=== PATIENT | male | born 1955 | race Caucasian/White ===

== ENCOUNTER 2020-10-09 06:05 | Outpatient (REF) | payer OTHER, SELFPAY ==
[2020-10-09 06:27] LABS: MANUAL DIFF FLAG NO
[2020-10-09 06:44] LABS: Basophils Percent Auto 0.5 % (0-2); Eosinophils Absolute Auto 0.1 X10*3/uL (0.0-0.4); Eosinophils Percent Auto 2.4 % (0-4); Hematocrit 48.3 % (42-52); Hemoglobin 16.6 g/dl (14.0-18.0); Imm Gran Abs Auto 0.02 X10*3/uL (0.00-0.03); Imm Gran Pct Auto 0.5 % (0.0-0.4); Lymphocytes Absolute Auto 1.5 X10*3/uL (1.2-4.9); Lymphocytes Percent Auto 35.2 % (20-40); Mean Corpuscular HGB Conc 34.4 g/dl (31.0-36.0); Mean Corpuscular Hemoglobin 31.2 pg (27.0-33.0); Mean Corpuscular Volume 90.8 fL (80-98); Mean Platelet Volume 10.4 fL (9.4-12.4); Monocytes Absolute Auto 0.5 X10*3/uL (0.1-1.2); Monocytes Percent Auto 12.1 % (2-11); Neutrophils Percent Auto 49.3 % (45-73); Platelet Count 193 X10*3/uL (160-400); Red Blood Count 5.32 X10*6/uL (4.60-5.80); Red Cell Distribution Width 12.9 % (11.0-16.0); White Blood Count 4.1 X10*3/uL (4.8-10.8)
[2020-10-09 07:12] LABS: Alanine Aminotransferase 36 U/L (0-40); Albumin Level 4.5 g/dL (3.5-5.0); Alkaline Phosphatase 70 U/L (39-117); Anion Gap 14 (12-20); Aspartate Amino Transferase 26 U/L (5-37); Bilirubin Total 0.8 mg/dL (0.0-1.0); Blood Urea Nitrogen 13 mg/dL (9-16); Calcium 9.7 mg/dL (8.4-10.2); Carbon Dioxide 25 mmol/L (22-29); Chloride 108 mmol/L (96-108); Cholesterol 194 mg/dL; Estimated Glomerular Filt Rate > 60; Glucose Random 95 mg/dL (60-115); HDL Cholesterol 49 mg/dL; LDL Cholesterol Calculated 114 mg/dl; Potassium 5.1 mmol/L (3.3-5.1); Sodium 142 mmol/L (135-145); Total Protein 7.3 g/dL (6.5-8.0); Triglycerides 157 mg/dL
[2020-10-09 07:35] LABS: Prostate Specific Antigen 0.39 ng/mL (<0.05-4.0); Thyroid Stimulating Hormone 0.97 uIU/mL (0.32-4.0)
== END 2020-10-09 06:06 | disposition home or self-care (01) ==
LOC: HO.LAB 06:05
PROVIDERS: Visit Provider Internal Medicine
DX: Z12.5 Encounter for screening for malignant neoplasm of prostate (principal); E78.00 Pure hypercholesterolemia, unspecified
CPT/HCPCS: 36415; 80053; 80061; 84153; 84443; 85025

== ENCOUNTER 2021-01-27 09:16 | Outpatient (REF) | payer MEDICARE, SELFPAY ==
--- NOTE | ~2021-01-27 | US_ITS ---
EXAMINATION: US RETROPERITONEAL LIMITED (AORTA) CLINICAL INFORMATION: History of smoking. COMPARISON: Comparison is made to a CT scan dated 01/11/2015 which demonstrated mild ectasia of the infrarenal aorta. TECHNIQUE: Rico-scale, color Doppler and spectral Doppler evaluation of the abdominal aorta. FINDINGS: There is scattered minimal atherosclerotic disease without evidence of abdominal aortic aneurysm. 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 The measurements of the aorta in maximum AP and transverse dimensions respectively are as follows: Proximal: 3.1 x 2 point cm. Mid: 2.0 x 2.2 cm. Distal: 2.0 x 2.3 cm. PSV: 88 cm/s. The measurements of the common iliac arteries in maximum AP and TRV dimensions are as follows: Right Common Iliac Artery: 1.5 x 1.3 cm. Left Common Iliac Artery: 1.5 x 1.5 cm. US/US abdominal aortic aneurysm IMPRESSION: 1. There is scattered minimal atherosclerotic disease without evidence of abdominal aortic aneurysm. 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
== END 2021-01-27 09:17 | disposition home or self-care (01) ==
LOC: HO.US 09:16
PROVIDERS: PCP Internal Medicine; Visit Provider Internal Medicine
DX: Z13.6 Encounter for screening for cardiovascular disorders (principal); Z87.891 Personal history of nicotine dependence
CPT/HCPCS: 76706

== ENCOUNTER 2021-06-16 06:16 | Outpatient (REF) | payer MEDICARE, SELFPAY ==
[2021-06-16 06:30] LABS: MANUAL DIFF FLAG NO
[2021-06-16 07:24] LABS: Basophils Percent Auto 0.3 % (0-2); Eosinophils Absolute Auto 0.1 X10*3/uL (0.0-0.4); Eosinophils Percent Auto 2.3 % (0-4); Hematocrit 46.4 % (42.0-52.0); Hemoglobin 15.5 g/dl (14.0-18.0); Imm Gran Abs Auto 0.01 X10*3/uL (0.00-0.03); Imm Gran Pct Auto 0.3 % (0.0-0.4); Lymphocytes Absolute Auto 1.5 X10*3/uL (1.2-4.9); Lymphocytes Percent Auto 37.7 % (20-40); Mean Corpuscular HGB Conc 33.4 g/dl (31.0-36.0); Mean Corpuscular Hemoglobin 30.3 pg (27.0-33.0); Mean Corpuscular Volume 90.8 fL (80.0-98.0); Mean Platelet Volume 11.5 fL (9.4-12.4); Monocytes Absolute Auto 0.5 X10*3/uL (0.1-1.2); Monocytes Percent Auto 12.7 % (2-11); Neutrophils Absolute Auto 1.8 x10*3/uL (2.0-8.3); Neutrophils Percent Auto 46.7 % (45-73); Platelet Count 182 X10*3/uL (160-400); Red Blood Count 5.11 X10*6/uL (4.60-5.80); Red Cell Distribution Width 12.9 % (11.0-16.0); White Blood Count 3.9 X10*3/uL (4.8-10.8)
[2021-06-16 07:53] LABS: Alanine Aminotransferase 36 U/L (0-40); Albumin Level 4.4 g/dL (3.5-5.0); Alkaline Phosphatase 74 U/L (39-117); Anion Gap 10 (12-20); Aspartate Amino Transferase 26 U/L (5-37); Bilirubin Total 0.9 mg/dL (0.0-1.0); Blood Urea Nitrogen 13 mg/dL (9-16); Calcium 10.1 mg/dL (8.4-10.2); Carbon Dioxide 28 mmol/L (22-29); Chloride 109 mmol/L (96-108); Cholesterol 160 mg/dL; Estimated Glomerular Filt Rate > 60; Glucose Random 93 mg/dL (60-115); HDL Cholesterol 40 mg/dL; LDL Cholesterol Calculated 90 mg/dl; Potassium 5.3 mmol/L (3.3-5.1); Sodium 142 mmol/L (135-145); Total Protein 7.1 g/dL (6.5-8.0); Triglycerides 154 mg/dL
[2021-06-16 08:02] LABS: Appearance Urine CLEAR; Color Urine YELLOW; Glucose Urine UA NEG (NEG); Leukocyte Esterase Urine NEG (NEG); Nitrite Urine NEG (NEG); Specific Gravity - Urine >= 1.030 (1.005-1.025); Urine Blood NEG (NEG); Urine Ketones NEG (NEG); Urine Protein NEG (NEG-TRACE)
[2021-06-16 08:09] LABS: ~HepC Num1 0.08 S/CO (0.00-0.79); ~Hepatitis C Antibody Nonreactive (Nonreactive)
[2021-06-16 08:14] LABS: Thyroid Stimulating Hormone 1.75 uIU/mL (0.32-4.0)
== END 2021-06-16 06:17 | disposition home or self-care (01) ==
LOC: HO.LAB 06:16
PROVIDERS: PCP Internal Medicine; Visit Provider Internal Medicine
DX: Z11.59 Encounter for screening for other viral diseases (principal); E78.00 Pure hypercholesterolemia, unspecified; R35.1 Nocturia
CPT/HCPCS: 36415; 80053; 80061; 81003; 84443; 85025; 86803

== ENCOUNTER 2021-08-06 10:21 | Outpatient (REF) | payer MEDICARE, SELFPAY ==
--- NOTE | ~2021-08-06 | US_ITS ---
EXAMINATION: US THYROID CLINICAL INFORMATION: Nontoxic multinodular goiter COMPARISON: None TECHNIQUE: Linear transducer grayscale and color Doppler examination with attention to the region of the thyroid. FINDINGS: SIZE: Measurements of the thyroid lobes and nodules are given in sagittal, anteroposterior and transverse dimensions respectively. Right Thyroid Lobe: 4.3 x 2.3 x 2.1 cm, volume 10.9 mL. Parenchyma: The gland echotexture is homogeneous. Thyroid vascularity is normal. Left Thyroid Lobe: 5.2 x 1.5 x 2.0 cm, volume 8.2 mL. Parenchyma: The gland echotexture is homogeneous. Thyroid vascularity is normal. Isthmus: 0.6 cm in maximum AP dimension. Estimated total number of nodules greater than or equal to 1 cm: 1. Fringe Weaver nodules are described as follows: 1. Location: Right inferior. Size: 1.0 x 0.7 x 0.8 cm, volume 0.29 mL. Nodule characteristics: Composition: Solid (2). Echogenicity: Very hypoechoic (3). Shape: Not taller than wide (0). Margins: Smooth (0). Echogenic Foci: Punctate echogenic foci (3). ACR TI-RADS total points: 8 ACR TI-RADS category: 5 2. Location: Left inferior medial. Size: 0.6 x 0.3 x 0.6 cm, volume 0.05 mL. Nodule characteristics: Composition: Mixed cystic and solid (1). Echogenicity: Cannot be determined (1). Shape: Not taller than wide (0). Margins: Smooth (0). Echogenic Foci: None (0). ACR TI-RADS total points: 2 ACR TI-RADS category: 2 3. Location: Left inferior medial. Size: 0.4 x 0.2 x 0.3 cm, volume 0.01 mL. Nodule characteristics: Composition: Spongiform (0). Echogenicity: Anechoic (0). Shape: Not taller than wide (0). Margins: Smooth (0). Echogenic Foci: None (0). ACR TI-RADS total points: 0 ACR TI-RADS category: 1 NODES: There are 2 level 4 right cervical lymph nodes that measure 1.1 x 0.7 x 0.8 cm and 1.1 x 0.5 x 0.8 cm. There are 3 left level 3 lymph nodes that measure 1.9 x 0.4 x 0.9 cm and 1 x 0.4 x 0.7 cm and 1.3 x 0.5 x 0.8 cm. Lymph nodes are upper normal in size. Some lymph nodes demonstrate abnormal ultrasound morphology and cortical flow. US/US thyroid IMPRESSION: Bilateral thyroid nodules. Suspicious-appearing nodule in the inferior right lobe. Fine needle aspiration of the nodule in the right lobe recommended. Upper normal-size bilateral lymph nodes adjacent to the thyroid gland with abnormal ultrasound morphology and flow. Fine needle aspiration of a cervical lymph node should be considered as well. ACR TI-RADS RECOMMENDATION REFERENCE: Ultrasound-guided fine-needle aspiration, followup ultrasound, no further follow up. * TR1 (0 point) and TR 2 (2 points): No FNA or follow up * TR3 (3 points): FNA if more than or equal to 2.5 cm in maximum dimension, followup ultrasound in 1, 3 and 5 years if 1.5 to 2.4 cm in maximum dimension. * TR4 (4-6 points): FNA if more than or equal to 1.5 cm in maximum dimension, followup ultrasound in 1, 2, 3 and 5 years if 1 to 1.4 cm in maximum dimension. * TR5 (more than or equal to 7 points): FNA if more than or equal to 1 cm in maximum dimension, followup ultrasound every year for 5 years if 0.5 to 0.9 cm in maximum dimension. * TR3, TR4 or TR5 nodules that are below the size threshold for follow up receive no follow up. Findings will be communicated by the [place] work flow baby attendant.
== END 2021-08-06 10:22 | disposition home or self-care (01) ==
LOC: HO.HMGCX 10:21
PROVIDERS: Visit Provider Internal Medicine
DX: E04.2 Nontoxic multinodular goiter (principal)
CPT/HCPCS: 76536

== ENCOUNTER 2021-12-30 06:22 | Outpatient (REF) | payer MEDICARE, SELFPAY ==
[2021-12-30 06:29] LABS: MANUAL DIFF FLAG NO
[2021-12-30 07:57] LABS: Basophils Percent Auto 0.4 % (0-2); Eosinophils Absolute Auto 0.2 X10*3/uL (0.0-0.4); Hematocrit 48.1 % (42.0-52.0); Hemoglobin 16.5 g/dl (14.0-18.0); Imm Gran Abs Auto 0.02 X10*3/uL (0.00-0.03); Imm Gran Pct Auto 0.4 % (0.0-0.4); Lymphocytes Absolute Auto 1.8 X10*3/uL (1.2-4.9); Lymphocytes Percent Auto 35.3 % (20-40); Mean Corpuscular HGB Conc 34.3 g/dl (31.0-36.0); Mean Corpuscular Hemoglobin 31.3 pg (27.0-33.0); Mean Corpuscular Volume 91.1 fL (80.0-98.0); Mean Platelet Volume 10.8 fL (9.4-12.4); Monocytes Absolute Auto 0.6 X10*3/uL (0.1-1.2); Monocytes Percent Auto 11.4 % (2-11); Neutrophils Absolute Auto 2.5 x10*3/uL (2.0-8.3); Neutrophils Percent Auto 49.5 % (45-73); Platelet Count 219 X10*3/uL (160-400); Red Blood Count 5.28 X10*6/uL (4.60-5.80); Red Cell Distribution Width 12.7 % (11.0-16.0)
[2021-12-30 08:17] LABS: Alanine Aminotransferase 34 U/L (0-40); Albumin Level 4.7 g/dL (3.5-5.0); Alkaline Phosphatase 75 U/L (39-117); Anion Gap 15 (12-20); Aspartate Amino Transferase 25 U/L (5-37); Bilirubin Total 0.7 mg/dL (0.0-1.0); Blood Urea Nitrogen 18 mg/dL (9-16); Calcium 9.6 mg/dL (8.4-10.2); Carbon Dioxide 26 mmol/L (22-29); Chloride 106 mmol/L (96-108); Cholesterol 180 mg/dL; Estimated Glomerular Filt Rate > 60; Glucose Random 83 mg/dL (60-115); HDL Cholesterol 50 mg/dL; LDL Cholesterol Calculated 103 mg/dl; Sodium 142 mmol/L (135-145); Total Protein 7.4 g/dL (6.5-8.0); Triglycerides 136 mg/dL
[2021-12-30 08:40] LABS: Thyroid Stimulating Hormone 1.43 uIU/mL (0.32-4.0)
[2021-12-31 21:36] LABS: Thyroid Peroxidase Antibodies 1 IU/mL (<9)
== END 2021-12-30 06:23 | disposition home or self-care (01) ==
LOC: HO.LAB 06:22
PROVIDERS: PCP Internal Medicine; Visit Provider Internal Medicine
DX: D72.819 Decreased white blood cell count, unspecified (principal); E78.00 Pure hypercholesterolemia, unspecified; E04.2 Nontoxic multinodular goiter
CPT/HCPCS: 36415; 80053; 80061; 84443; 85025; 86376

== ENCOUNTER 2023-03-09 06:07 | Outpatient (REF) | payer MEDICARE, SELFPAY ==
[2023-03-09 06:38] LABS: MANUAL DIFF FLAG NO
[2023-03-09 07:44] LABS: Basophils Percent Auto 0.4 % (0-2); Eosinophils Absolute Auto 0.1 X10*3/uL (0.0-0.4); Eosinophils Percent Auto 2.2 % (0-4); Hematocrit 48.7 % (42.0-52.0); Hemoglobin 16.8 g/dl (14.0-18.0); Imm Gran Abs Auto 0.02 X10*3/uL (0.00-0.03); Imm Gran Pct Auto 0.4 % (0.0-0.4); Lymphocytes Absolute Auto 1.6 X10*3/uL (1.2-4.9); Lymphocytes Percent Auto 35.2 % (20-40); Mean Corpuscular HGB Conc 34.5 g/dl (31.0-36.0); Mean Corpuscular Hemoglobin 31.2 pg (27.0-33.0); Mean Corpuscular Volume 90.4 fL (80.0-98.0); Mean Platelet Volume 11.1 fL (9.4-12.4); Monocytes Absolute Auto 0.5 X10*3/uL (0.1-1.2); Monocytes Percent Auto 11.7 % (2-11); Neutrophils Absolute Auto 2.3 x10*3/uL (2.0-8.3); Neutrophils Percent Auto 50.1 % (45-73); Platelet Count 219 X10*3/uL (160-400); Red Blood Count 5.39 X10*6/uL (4.60-5.80); Red Cell Distribution Width 12.8 % (11.0-16.0); White Blood Count 4.5 X10*3/uL (4.8-10.8)
[2023-03-09 08:03] LABS: Cholesterol 183 mg/dL (<200); HDL Cholesterol 49 mg/dL (>40); LDL Cholesterol Calculated 107 mg/dL (<100); Triglycerides 136 mg/dL (<150)
[2023-03-09 08:14] LABS: Prostate Specific Antigen Scr 0.57 ng/mL (<0.05-4.0)
[2023-03-09 08:22] LABS: Thyroid Stimulating Hormone 1.39 uIU/mL (0.32-4.0)
== END 2023-03-09 06:08 | disposition home or self-care (01) ==
LOC: HO.LAB 06:07
PROVIDERS: PCP Internal Medicine; Visit Provider Internal Medicine
DX: Z12.5 Encounter for screening for malignant neoplasm of prostate (principal); E78.00 Pure hypercholesterolemia, unspecified; E04.2 Nontoxic multinodular goiter
CPT/HCPCS: 36415; 80061; 82945; 84153; 84443; 85025

== ENCOUNTER 2023-03-31 06:04 | Outpatient (REF) | payer MEDICARE, SELFPAY ==
[2023-03-31 07:22] LABS: Alanine Aminotransferase 42 U/L (0-40); Albumin Level 4.5 g/dL (3.5-5.0); Alkaline Phosphatase 73 U/L (39-117); Anion Gap 12 (12-20); Aspartate Amino Transferase 30 U/L (5-37); Bilirubin Total 0.7 mg/dL (0.0-1.0); Blood Urea Nitrogen 12 mg/dL (9-16); Calcium 9.6 mg/dL (8.4-10.2); Carbon Dioxide 23 mmol/L (22-29); Chloride 110 mmol/L (96-108); Estimated Glomerular Filt Rate > 60; Glucose Random 88 mg/dL (60-115); Potassium 4.1 mmol/L (3.3-5.1); Sodium 141 mmol/L (135-145); Total Protein 7.4 g/dL (6.5-8.0)
== END 2023-03-31 06:05 | disposition home or self-care (01) ==
LOC: HO.LAB 06:04
PROVIDERS: PCP Internal Medicine; Visit Provider Internal Medicine
DX: E78.00 Pure hypercholesterolemia, unspecified (principal)
CPT/HCPCS: 36415; 80053

== ENCOUNTER 2023-08-15 08:52 | Outpatient (REF) | payer MEDICARE, SELFPAY ==
--- NOTE | ~2023-08-15 | US_ITS ---
EXAMINATION: US THYROID CLINICAL INFORMATION: Multiple thyroid nodules. COMPARISON: Ultrasound soft tissue head/neck thyroid dated 08/06/2021. TECHNIQUE: Linear transducer grayscale and color Doppler examination with attention to the region of the thyroid. FINDINGS: SIZE: Measurements of the thyroid lobes and nodules are given in sagittal, anteroposterior and transverse dimensions respectively. Right Thyroid Lobe: 4.5 x 2.1 x 2.4 cm, volume 11.8 mL. Previously 4.3 x 2.3 x 2.1 cm, volume 10.9 mL. Parenchyma: The gland echotexture is homogeneous. Thyroid vascularity is normal. Left Thyroid Lobe: 4.6 x 1.9 x 1.8 cm, volume 8.2 mL. Previously 5.2 x 1.5 x 2.0 cm, volume 8.2 mL. Parenchyma: The gland echotexture is homogeneous. Thyroid vascularity is normal. Isthmus: 0.8 cm in maximum AP dimension. Previously 0.6 cm. Estimated total number of nodules greater than or equal to 1 cm: 1. Electrical Transmission Engineer nodules are described as follows: 1. Location: Right mid/inferior. Size: 1.1 x 0.6 x 0.6 cm, volume 0.21 mL. Previously: 1.0 x 0.7 x 0.8 cm, volume 0.29 mL. Nodule characteristics: Composition: Solid (2). Echogenicity: Very hypoechoic (3). Shape: Not taller than wide (0). Margins: Smooth (0). Echogenic Foci: Punctate echogenic foci (3). ACR TI-RADS total points: 8 Previous: 8 ACR TI-RADS category: 5 Previous: 5 Significant change in size (>/= 20% in 2 dimensions and minimal increase of 2 mm or 50% or greater increase in volume): No Change in features: No Change in ACR TI-RADS risk category: No 2. Location: Left inferior. Size: 0.7 x 0.4 x 0.6 cm, volume 0.09 mL. Previously: 0.6 x 0.3 x 0.6 cm, volume 0.05 mL. Nodule characteristics: Composition: Mixed cystic and solid (1). Echogenicity: Undetermined Shape: Not taller than wide (0). Margins: Smooth (0). Echogenic Foci: None (0). ACR TI-RADS total points: 2 Previous: 2 ACR TI-RADS category: 2 Previous: 2 Significant change in size (>/= 20% in 2 dimensions and minimal increase of 2 mm or 50% or greater increase in volume): Yes Change in features: No Change in ACR TI-RADS risk category: No 3. Location: Left inferior. Size: 0.3 x 0.2 x 0.3 cm, volume 0.01 mL. Previously: 0.4 x 0.2 x 0.3 cm, volume 0.01 mL. Nodule characteristics: Composition: Spongiform (0). Echogenicity: Anechoic (0). Shape: Not taller than wide (0). Margins: Smooth (0). Echogenic Foci: None (0). ACR TI-RADS total points: 0 Previous: 0 ACR TI-RADS category: 1 Previous: 1 Significant change in size (>/= 20% in 2 dimensions and minimal increase of 2 mm or 50% or greater increase in volume): No Change in features: No Change in ACR TI-RADS risk category: No NODES: 0.8 x 0.5 x 0.8 cm and 0.9 x 0.6 x 0.6 cm right level 4 lymph nodes. A 1.1 x 0.5 x 0.7 cm, 0.9 x 0.4 x 0.4 cm, and 1.7 x 0.5 x 0.5 cm left level 3 lymph nodes. Bilateral cervical nodes have not significantly increased in size and remain borderline enlarged. As previously noted, some nodes appear atypical. US/US thyroid IMPRESSION: 1. A 1.0 cm right lower pole TR 5 thyroid nodule again meets criteria for biopsy. Fine-needle aspiration recommended if not already performed. 2. Bilateral cervical nodes have not significantly increased in size and remain borderline enlarged. As previously noted, some nodes appear atypical. Correlation with clinical exam recommended to determine further management including possible additional imaging, treatment or biopsy. This study was presented today August 22, 2023 for interpretation. PSA staff will provide results to referring provider at this time. ACR TI-RADS RECOMMENDATION REFERENCE: Ultrasound-guided fine-needle aspiration, follow up ultrasound, no further followup. * TR1 (0 point) and TR2 (2 points): No FNA or followup * TR3 (3 points): FNA if more than or equal to 2.5 cm in maximum dimension, follow up ultrasound in 1, 3 and 5 years if 1.5 to 2.4 cm in maximum dimension. * TR4 (4-6 points): FNA if more than or equal to 1.5 cm in maximum dimension, follow up ultrasound in 1, 2, 3 and 5 years if 1 to 1.4 cm in maximum dimension. * TR5 (more than or equal to 7 points): FNA if more than or equal to 1 cm in maximum dimension, follow up ultrasound every year for 5 years if 0.5 to 0.9 cm in maximum dimension. * TR3, TR4 or TR5 nodules that are below the size threshold for follow up receive no followup.
== END 2023-08-15 08:53 | disposition home or self-care (01) ==
LOC: HO.US 08:52
PROVIDERS: PCP Internal Medicine; Visit Provider Internal Medicine
DX: E04.2 Nontoxic multinodular goiter (principal)
CPT/HCPCS: 76536

== ENCOUNTER 2023-09-11 13:05 | Outpatient (REF) | payer MEDICARE, SELFPAY ==
[2023-09-11 14:53] LABS: C Reactive Protein 0.11 mg/dL (< or = 0.50)
[2023-09-12 13:58] LABS: Lyme Abs Screen <0.90 index
[2023-09-20 15:44] LABS: A. Phagocytophilum Ab IgG <1:64 (<1:64); A. Phagocytophilum Ab IgM <1:20 (<1:20); E. Chaffeensis Ab IgG <1:64 (<1:64); E. Chaffeensis Ab IgM <1:20 (<1:20)
== END 2023-09-11 13:06 | disposition home or self-care (01) ==
LOC: HO.LAB 13:05
PROVIDERS: PCP Internal Medicine; Visit Provider Internal Medicine
DX: M25.50 Pain in unspecified joint (principal)
CPT/HCPCS: 36415; 86140; 86617; 86618; 86666

== ENCOUNTER 2023-12-18 06:26 | Day surgery (SDC) | payer MEDICARE, SELFPAY ==
[2023-12-14 14:31] VITALS: BMI 31.8
--- NOTE | 2023-12-15 12:34 | P.CONAN_ITS ---
Documented by User: Oanh Vann NP 12/15/23 12:34 HPI - Anesthesia Eval Consult details Narrative: 68yo M for Colonoscopy [facility] Past Medical History Medical History (Updated 12/14/23 @ 14:32 by Kami Wang RN) MRSA (methicillin resistant Staphylococcus aureus) Hyperlipidemia Surgical History Surgical History (Updated 12/14/23 @ 14:29 by Kami Wang RN) History of back surgery Hx of tonsillectomy Hx of right inguinal hernia repair History of hydrocelectomy Hx of foot surgery H/O colonoscopy Social History Social History (Updated 12/14/23 @ 14:29 by Kami Wang RN) Household Members: Spouse Are you a primary progressive care unit registered nurse to a significant other at home: No Do you presently have visiting nurse or other home services: No Patient Tobacco Use Status: Former Tobacco user Tobacco use type: Cigarette Use of substances other than those prescribed or required for medical reasons: Yes Have you been hit, kicked, punched, or otherwise hurt by someone within the past year? If so, by whom?: No Are you DNR?: No Advance Directives: No Advance Directives Information Provided: Yes Recently lost weight without trying: No Meds Allergies Allergy/AdvReac Type Severity Reaction Status Date / Time ibuprofen [IBUPROFEN] Allergy Unknown HIVES AND Verified 12/18/23 07:02 RASH Home Medications ?Medication ?Instructions ?Recorded ?Confirmed ?Last Taken ?Type aspirin 81 mg tablet,delayed 81 mg PO DAILY 12/14/23 12/14/23 12/14/23 History release atorvastatin 10 mg tablet 10 mg PO DAILY 12/14/23 12/14/23 Unknown History multivitamin 1 tab PO DAILY 12/14/23 12/14/23 Unknown History edtfd-0a-alp-epa-fish oil 120 1 cap PO DAILY 12/14/23 12/14/23 12/14/23 History mg-180 mg-60 mg-1,200 mg capsule, DR (Fish Oil) Exam Height,Weight and Vital Signs: Height 5 ft 8 in Weight 94.801 kg Assessment and Plan Assessment Anesthesia Assessment: Chart Reviewed Documented by User: Mat Agrawal MD 12/18/23 07:32 [facility] Past Medical History Medical History (Updated 12/14/23 @ 14:32 by Kami Wang RN) MRSA (methicillin resistant Staphylococcus aureus) Hyperlipidemia Family History Family history of problems with anesthesia: No Surgical History Surgical History (Updated 12/14/23 @ 14:29 by Kami Wang RN) History of back surgery Hx of tonsillectomy Hx of right inguinal hernia repair History of hydrocelectomy Hx of foot surgery H/O colonoscopy History of Problems with Anesthesia: No Social History Social History (Updated 12/14/23 @ 14:29 by Kami Wang RN) Household Members: Spouse Are you a primary progressive care unit registered nurse to a significant other at home: No Do you presently have visiting nurse or other home services: No Patient Tobacco Use Status: Former Tobacco user Tobacco use type: Cigarette Use of substances other than those prescribed or required for medical reasons: Yes Have you been hit, kicked, punched, or otherwise hurt by someone within the past year? If so, by whom?: No Are you DNR?: No Advance Directives: No Advance Directives Information Provided: Yes Recently lost weight without trying: No Meds Allergies Allergy/AdvReac Type Severity Reaction Status Date / Time ibuprofen [IBUPROFEN] Allergy Unknown HIVES AND Verified 12/18/23 07:02 RASH Home Medications ?Medication ?Instructions ?Recorded ?Confirmed ?Last Taken ?Type aspirin 81 mg tablet,delayed 81 mg PO DAILY 12/14/23 12/14/23 12/14/23 History release atorvastatin 10 mg tablet 10 mg PO DAILY 12/14/23 12/14/23 Unknown History multivitamin 1 tab PO DAILY 12/14/23 12/14/23 Unknown History xbogm-7f-csa-epa-fish oil 120 1 cap PO DAILY 12/14/23 12/14/23 12/14/23 History mg-180 mg-60 mg-1,200 mg capsule, DR (Fish Oil) Exam Airway Mallampati Class: I TM Dist: <=3cm Neck ROM: Full Loose/Missing/Broken Teeth: No Heart: ok Lungs: ok Assessment and Plan Assessment Anesthesia Assessment: Anesthesia Plan Discussed Final Anesthetic Review Family History of Problems with Anesthesia: No History of Problems with Anesthesia: No NPO: Yes ASA Class: II Final Preanesthetic Review: No Changes in Pt Med Stat, Meds/Allgs Chart Reviewed, Consent Obtained/Reviewed and Anes Risks/Benef Reviewed Patient Risk: Intermediate Procedure Risk: Low Anesthetic Plan Anesthetic Plan: MAC: and Agree w/ Assess. and Plan Disposition: Standard PACU
[2023-12-18 07:06] VITALS: BMI 31.0
[2023-12-18 07:07] VITALS: BMI 31.0
[2023-12-18 07:15] VITALS: BP 137/86; PULSE 61; RESP 16; TEMP 36.1; O2SAT 96
[2023-12-18] MEDS: Lactated Ringers 1,000 ML 100 ML IVCONT (07:28)
[2023-12-18 08:24] VITALS: BP 116/72; PULSE 59; RESP 18; TEMP 36.4; O2SAT 94
--- NOTE | 2023-12-18 08:26 | PM.OP ---
Brief Operative Note Date of Service: 12/18/23 Pre-op diagnosis: Screening Post-op diagnosis: other (Colon polyp) Procedure: Colonoscopy to the cecum and TI with bx/removal of polyp Surgeon: Jordan Monterroso MD Anesthesia: MAC Was an Salesperson Hosiery used for this Procedure?: No Estimated blood loss (mL): 2.0 Pathology: other (A. Cecal polyp) Condition: stable Disposition: PACU
[2023-12-18 08:39] VITALS: BP 127/82; PULSE 68; RESP 18; O2SAT 96
[2023-12-18 08:51] VITALS: TEMP 36.6
--- NOTE | 2023-12-18 08:51 | OP_ITS ---
DATE OF SERVICE: 12/18/2023 SURGEON: Jordan Monterroso MD INDICATIONS: The patient presents for evaluation of personal history of tubular adenomas of the colon and colorectal cancer screening. Full consent has been obtained from him for this, including risks of bleeding and perforation. PREOPERATIVE DIAGNOSIS: Colorectal cancer screening and personal history of tubular adenoma of the colon. POSTOPERATIVE DIAGNOSIS: PROCEDURE PERFORMED: Colonoscopy to the cecum and terminal ileum with biopsy and removal of polyp. ESTIMATED BLOOD LOSS: COMPLICATIONS: ANESTHESIA: Monitored anesthesia care. ASSISTANTS: SPECIMENS: POSTOPERATIVE DIAGNOSES: Colorectal cancer screening and personal history of tubular adenoma of the colon, small colon polyp, diverticulosis, and internal hemorrhoids. DESCRIPTION OF PROCEDURE: The patient was placed in the left lateral decubitus position. The digital rectal exam revealed no abnormalities. The Olympus video pediatric colonoscope was entered into the rectum and advanced easily to the cecum. Once in the cecum, I did identify normal-appearing cecal pouch other than a 3 mm polyp adjacent to the appendiceal orifice that was biopsied and completely removed with a cold biopsy forceps. It appeared to be grossly hyperplastic. The terminal ileum was cannulated and appeared normal. The scope was withdrawn back in the colon. The remainder of the cecum appeared normal. The scope was slowly withdrawn assessing all mucosal surfaces carefully. Preparation was excellent. I did not visualize any other polyps, colitis, nor angiodysplasia. There was a mild amount of sigmoid diverticulosis. In the rectum, scope was retroflexed visualizing internal hemorrhoids, but no other pathology. The rectal mucosa appeared normal. The scope was straightened and withdrawn from the patient. He tolerated the procedure well and was returned to the recovery area in stable condition. IMPRESSION: 1. Small colon polyp. 2. Diverticulosis. 3. Internal hemorrhoids. PLAN: The results of the biopsy will be checked. I would recommend a repeat colonoscopy in 5 years for further screening and surveillance. He will otherwise see me on a p.r.n. basis. MD GISELA Bassett/ANDRE / [phone]
== END 2023-12-18 09:01 | disposition home or self-care (01) ==
PROVIDERS: PCP Internal Medicine; Visit Provider Internal Medicine
PROC: 0DJD8ZZ Inspection of Lower Intestinal Tract, Via Natural or Artificial Opening Endoscopic (ICD-10-PCS; CPT 45378; principal; 2023-12-18 07:30)
DX: Z12.11 Encounter for screening for malignant neoplasm of colon (principal); D12.0 Benign neoplasm of cecum; K57.30 Diverticulosis of large intestine without perforation or abscess without bleeding; K64.8 Other hemorrhoids; Z86.010 Personal history of colon polyps; E78.5 Hyperlipidemia, unspecified; Z86.14 Personal history of Methicillin resistant Staphylococcus aureus infection; Z87.891 Personal history of nicotine dependence
CPT/HCPCS: 45380; 88305; J2704

== ENCOUNTER 2024-08-15 06:08 | Outpatient (REF) | payer MEDICARE, SELFPAY ==
--- OUTSIDE RECORDS SUMMARY | 2024-08-15 06:11 | XMS_ITS ---
Author Organization [facility] Raffaele ashleigh [place]den Address [address] [place] [address] Care Team Providers Care Repair Operator Name Role Phone Sanjeev Stephenson MD Primary Care Provider Unavaila ble Black, Sudha Unavailable [phone] Allergies Allergen (clinical drug ingredient) Drug/Non Drug Allergy documented on EMR Reaction Allergy Type Onset Date Status ibuprofen Advil hives Drug Allergy Active Aleve hives Drug Allergy Active ibuprofen Ibuprofen hives Drug Allergy Active Results Component Value Reference Range Notes X ray : Foot, left 3V Reviewed date:07/10/2024 12:26:48 PM Interpretation:See Examination above Performing Lab: Notes/Report: See Examination above REASON FOR VISIT Foot pain, Ingrown Nail Medications Medication SIG (Take, Route, Frequency, Duration) Notes Start Date End Date Status Keflex 500 MG 1 capsule Orally huma ry 12 hrs for 7 days 03/25/2020 Not-Taking Atorvastatin Calcium 10 MG Orally Active Fish Oil Active Percocet 5-325 MG 1 tablet as needed Orally every 4-6 hrs for as needed 08/25/2016 Not-Taking Keflex 500 MG 1 capsule Orally huma ry 12 hrs for 10 day(s) Not-Taking Multivitamin Active Social History Tobacco Use: Social History Observation Description Date Details (start date - stop date) Never Smoker NA - NA Tobacco use other than smoking: Question Answer Notes Are you an other tobacco user? No Tobacco Control (Standard) Question Answer Notes Tobacco use: Nonsmoker Additional Findings: Tobacco non-user Current no nsmoker AUDIT-C (Standard) Question Answer Notes Did you have a drink containing alcohol in the p ast year? No Points 0 Interpretation Negative Problems Problem Type SNOMED Code ICD Code Onset Dates Problem Status W/U Status Risk Notes Problem Osteoarthritis of midtarsal joint of left foot (3007990501638001 ) Osteoarthritis of midtarsal joint of left foot (M19.072) Active confirmed Vital Signs Height 5ft 9in in 07/10/2024 Weight 204 lbs 07/10/2024 BMI 30.12 kg/m2 07/10/2024 Blood pressure systolic 125 mm Hg 07/11/19 25 Blood pressure diastolic 73 mm Hg 025 Procedures Procedure Date Ordered Date Performed Result Body Sit e 75324-Jjwxoaky Plate 07/10/2024 N/A Encounters Encounter Location Date Provider Diagnosis [facility] [address] 07/10/2024 Sudha Black Pain in left foot M79.672 ; Osteoarthritis of midtarsal joint of left foot M19.072 ; Pain in left ankle and joints of left foot M25.572 ; Bursitis of left foot M77.52 and Ingrown nail L60.0 Assessments Encounter Date Diagnosis (ICD Code) Assessment Notes Treatment Notes Treatment Clinical Notes Section Notes 07/10/2024 Pain in left foot (ICD-10 - M79.672) 07/10/2024 Osteoarthritis of midtarsal joint of left foot (ICD-10 - M19.072) 07/10/2024 Pain in left ankle and joints of left foot (ICD-10 - M25.572) 07/10/2024 Bursitis of left foot (ICD-10 - M77.52) 07/10/2024 Ingrown nail (ICD-10 - L60.0) Plan Of Treatment Pending Test Test Name Order Date 23340-Uvmbaeoa Plate 07/10/2024 Next Appt Details Follow Up: 2 Weeks,prn, Reas on: Procedure Notes * Category Sub-Category Detail Notes Nail Avulsion Procedure A fine sterile e levator was placed between the eponychium, nail fold, and nail plate to separate the structures. A sterile nail splitter, and/or sterile 316 blade, was then used to longitudinally section the nail along its entire length through the eponychium to the area under the nail fold. The offending portion of nail was from the nail bed with a rolling action and then removed with a hemostat. No underlying bone was identified. There was minimal bleeding as hemostasis was achieved through the temporary use of either a digital tourniquet or the aforementioned local with epinephrine. A bacitracin sterile dressing was applied. Local wound aftercare instructions were discussed and dispensed. The patient was informed of both conservative and future surgical procedures to prevent recurrence. Tylenol or Motrin was recommended for pain or discomfort - 80225, Pt DEFERS matricectomy Anesthesia , 3cc of 1 percent L idocaine Plain local anesthesic utilizing aseptic technique Location , Medial nail border , TA Progress Notes * Lee FREGOSO ADOB: [birth year] (68 yo M)Acc No.[id number]:07/10/2024 Progress Notes Patient:?Lee FREGOSO A Provider:?Sudha Bowles DPM :1955???Age:68 Y???Sex:Male Eric e:07/10/2024 Address:[address] [place], [place] [id number] Pcp:Sanjeev Stephenson MD Subjective: * Chief Complaints: * ???Foot painIngrown Nail * HPI: ???Foot Pain:?Nature:?aching, stiffness, swelling, throbbing.?Location:?Top, Midfoot, LEFT.?Duration:?, several months.?Course:?worse.?Treatments:?rest/alter normal daily activity.?Misc:?Pt States Last PCP Visit -07/02/2024.? * ROS:?General/Constitutional:?Nausea?denies.?Vomiting?denies.?Hunger Thirst?denies.?Loss appetite?denies.?Chills?denies.?Fatigue?denies.?Fever?denies.?Night Sweats?denies.?Unexplained weight loss?denies.?Unexplained weight gain?denies.?HEENTM:?Dentures?denies.?Dizziness?denies.?Glasses/contacts?denies.?Retinopathy?de nies.?Blurred/double vision?denies.?TMJ?denies.?Discharge/drainage?denies.?Implants?denies.?Sore throat?denies.?Dental implants?denies.?Hard of hearing ?denies.?Difficulty chewing/swallowing/speaking?denies.?Nose bleeds?denies.?Sore mouth?denies.?Respiratory:?On Oxygen?denies.?Pneumonia/pleurisy?denies.?Bronchitis?denies.?Emphysema?denies.?C oughing?denies.?Cough blood?denies.?Shortness of breath?denies.?Wheezing?denies.?Cardiovascular:?Pacemaker?denies.?MVP?denies.?WPW?denies.?CHF?denies.?Heart attack?denies.?Septal defect?denies.?Rapid beat?denies.?Chest pain ?denies.?Atrial Fib.?denies.?Murmur/Palpitations?denies.?Gastrointestinal:?Hemorrhoids?denies.?Stomach/Abdominal pain?denies.?Dark blood stool?denies.?Irritable bowel ?denies.?Constipation?denies.?Diarrhea?denies.?Hematology:?Swelling?denies.?Clots?denies.?Varicose Veins?denies.?Bruising?denies.?Bleeding problem?denies.?Genitourinary:?Blood urine?denies.?Frequent/Painfu/urination/bladder control?denies.?Kidney stones?denies.?Infection (UTI)?denies.?Nephropathy?denies.?sex trans dis (STD)?denies.?Prostate?denies.?Musculoskeletal:?Hammertoes?denies.?Bunions?denies.?Back Pain?denies.?Muscle Cramps/ Resting?denies.?Muscle cramps / walking?denies.?Generalized aches and pains?denies.?Weakness?denies.?Integ.:?Herrmann?denies.?Scars?denies.?Corns/calluses?denies.?Ingrown nails?admits.?Painful nails?denies.?Open Sores?denies.?Rashes?denies.?Neurologic:?Difficulty sleeping?denies.?Brain disorder?denies.?Numbness?denies.?Balance trouble?denies.?Confusion?denies.?Fainting/blackouts?denies.?Tingling?denies.?Tr emors?denies.? * Medical History:? * Surgical History:?wrist surg rey back surgery 03/12/2015Excision Met Head R2nd 09/14/2016Hydrocele 05/2017 * Hospitalization/Major Diagno stic Procedure:?[facility]- Disc fusion 03/12/2015infection 08/25 * Family History:?Mother: dece ased.?Father: .? pt denies family history. * Social History:?Tobacco Use:?Tobacco use other than smoking?Are you an other tobacco user??No ?Tobacco Control (Standard)?Tobacco use:?Nonsmoker ?Additional Findings: Tobacco non-user?Current nonsmoker ???Drugs/Alcohol:?Drugs?Have you used drugs other than those for medical reasons in the past 12 months??No ???Miscellaneous:?Caffeine: yes, frequency:, 1-2 cups per day. ?Children: yes. ?Exercise: yes, walking, gym, bike riding. ?Marital status: . ?Occupation: retired. ???Drug/Alcohol:?AUDIT-C (Standard)?Did you have a drink containing alcohol in the past year??No ?Points?0 ?Interpretation?Negative * Medications:?TakingMultivita min Fish Oil Atorvastatin Calcium 10 MG Tablet Orally Taking Multivitamin Taking Fish Oil Taking Atorvastatin Calcium 10 MG Tablet Orally Not-Taking/PRNKeflex 500 MG Capsule 1 capsule Orally every 12 hrs Keflex 500 MG Capsule 1 capsule Orally every 12 hrs Percocet 5-325 MG Tablet 1 tablet as needed Orally every 4-6 hrs Medication List reviewed and reconciled with the patientNot-Taking/PRN Keflex 500 MG Capsule 1 capsule Orally every 12 hrs Not-Taking/PRN Keflex 500 MG Capsule 1 capsule Orally every 12 hrs Not- Taking/PRN Percocet 5-325 MG Tablet 1 tablet as needed Orally every 4-6 hrs Medication List reviewed and reconciled with the patient * Allergies:?Ibuprofen: hives - AllergyAdvil: hivesAleve: hivesyes[Allergies Verified] Objective: * Vitals:?Ht: 5ft 9in, Wt:204, BMI:30.12, Shoe size: 11, BP:125/73mm Hg, Ht-cm: 175.26 cm, Wt-k.53 kg. * Examination: ???General Examination: ?GENERAL APPEARANCE:?Reveals a pleasant, alert, well nourished, well- developed, well hydrated individual, who demonstrates proper attention to hygiene/body habitus, and is in no acute distress, Pt serves as own historian for office visit today.?ORIENTED:?person, place, and time.?Neurological: ?SENSORY:?Neurological exam reveals intact sensorium, pain sensation normal, vibration sensation intact, pinprick sensation is normal in the lower extremities, Pt denies, anesthesia, burning, paresthesia, tingling, B/L.?TINEL'S COMPRESSION:? Negative, Medial dorsal cutaneous nerve distribution, Intermediate dorsal cutaneous nerve distribution, Deep peroneal nerve distribution, Left.?Orthopedic: ?MUSCLE STRENGTH:?5/5 all groups in a symmetrical fashion, B/L.?FOOT MORPHOLOGY:? Prominent, painful 1st Met-Cuneiform joint with inflammation, LEFT.?DIGITAL DEFORMITIES:?Digital contracture, PIPJ, 2-5 B/L, incompl-reducible with WB, or to push-up test, no over, nor underlapping.?FOOTWEAR EVALUATION:?shoe gear properties exacerbate patients foot/toe deformity.?Vascular: ?DP PULSES (B):?3/4, B/L.?PT PULSES (B):?3/4, B/L.?CAPILLARY FILL TIME:?immediate, all digits, B/L.?TROPHIC CONDITION-TEXTURE/ELASTICITY/TURGOR/HAIR GROWTH (B):?normal, B/L.?TEMPERTURE GRADIENT (C):?normal, warm to cool, proximal to distal, B/L, B/L.?PIGMENTATION:?normal, B/L.?Dermatologic: ?SKIN FINDINGS:?Skin exam reveals normal color, texture, elasticity, and turgor. There are no masses, nor excrescences. The interspaces are clear, B/L.?Ingrown Nail: ?INSPECTION:?Reveals nail incurvation, pain on palpation, groove hypertrophy, groove ischemia, Medial nail border, TA.?X-Rays - IMAGING REPORT: ?Clinical Indication(s):? Evaluate for Fracture, Evaluate Biomechanical Deformity.?Views:?3 views of Foot, AP, LAT, LO, LEFT??Taken by trained?Podiatric Perishable Fruit Inspector (?KL ).?Findings:?normal bone and soft tissue density consistent for patients age and sex, eburnation dorsal 1st MT/Cun. jt, dorsal degenerative changes of the tarsal joints.?Digits:?show asymmetrical joint space narrowing at the PIPJ consistent with clinical finding of hammertoe deformity, show enlarged/hypertrophied phalangeal head(s) consistent for clinical finding of hammertoe deformity.?Fracture:?Negative fractures identified.? Assessment: * Assessment: 1.?Pain in left foot - M79.6 72???2.?Osteoarthritis of midtarsal joint of left foot - M19.072 (Primary)???Specify :Acute problem, Uncomplicated (3)???3.?Pain in left ankle and joints of left foot - M25.572???4. Bursitis of left foot - M77.52???5.?Ingrown nail - L60.0??? Plan: * Treatment: 2.?Ingrown nail?Procedure: 50987-Pvwdtkjg Plate * Procedures:?Nail Avulsion:?Location?, Medial nail border, TA.?Anesthesia?, 3cc of 1 percent Lidocaine Plain local anesthesic utilizing aseptic technique.?Procedure?A fine sterile elevator was placed between the eponychium, nail fold, and nail plate to separate the structures. A sterile nail splitter, and/or sterile 316 blade, was then used to longitudinally section the nail along its entire length through the eponychium to the area under the nail fold. The offending portion of nail was from the nail bed with a rolling action and then removed with a hemostat. No underlying bone was identified. There was minimal bleeding as hemostasis was achieved through the temporary use of either a digital tourniquet or the aforementioned local with epinephrine. A bacitracin sterile dressing was applied. Local wound aftercare instructions were discussed and dispensed. The patient was informed of both conservative and future surgical procedures to prevent recurrence. Tylenol or Motrin was recommended for pain or discomfort - 61455, Pt DEFERS matricectomy.? * Procedure Codes:?19878 X-RAY EXAM OF LEFT FOOT 3V, Modifiers: 26 , HE74554 Avulsion Plate, Modifiers: TA * Preventive Medicine:? ??Counseling:?Discussion:?-03: Office or other outpatient visit for the evaluation and management of a new patient, which required a medically appropriate history and/or examination and LOW level of DECISION MAKING for: 1 STABLE ACUTE UNCOMPLICATED PROBLEM, 2 OR MORE MINOR PROBLEMS, OR 1 STABLE CHRONIC PROBLEM, THAT POSE(S) A LOW RISK FOR MORBIDITY/MORTALITY. The visit on the day of the encounter encompassed interpreting the data and educating the patient as to the nature of their condition, treatment options available according to their individual PMH, meds, allergies, and overall health/living conditions, as well as any potential risks or complications that may occur from a failure to adhere to, and participate in, the recommended course of therapy. The discussion included a complete verbal, and/or written explanation of the examination results, any x-rays taken, the proposed diagnosis, and outline of the treatment plan. A schedule for future care needs was also explained. The patient verbalized an understanding of the instructions at this time and agreed to be an active participant in their treatment. If the patient should think of any questions or concerns after the visit, I have encouraged the patient to call the office.?Arthritis:?The patient was counseled on the various etiologies for their Arthritis including genetic, history of injury or trauma, abnormal foot biomechanics leading to excessive joint wear, and use/overuse. We discussed the various treatment options from no treatment, to topical analgesics such as Biofreeze gel, Aspercream, Voltaren gel, Lidoderm patches, CBD oils, THC creams, and Custom-compounded topical cream preparations to natural oral products such as Glucosamine Sulfate/Chondroitin/MSM/Collegen to analgesic Tylenol, to anti-inflammatory medications such as Ibuprofen/Naproxen, and the use of oral steroids if needed. Cardiac, Kidney, and GI issues were discussed RE: potential complications of oral anti-inflammatories. We discussed several other treatment options consisting of accom shoes, supportive innersoles, AFO bracing/support, cortisone injection therapy, and surgical resection of the arthritic joint(s) or fusion reconstruction if necessary. We discussed the advantages and disadvantages of conservative (vs) surgical treamtents including pain relief, improved function/activities of daily life, return to exercise to failure, expense, systemic complications, infection, [id number], prolongued postop course. Patient questions re: the various treatment options available, their successes and potential failures, and fci effects were discussed and the answers were verbally confirmed understood, recommend pt alter the lacing of their shoes to avoid pressure on painful midfoot, The Pt. was counseled on the x-rays,treatment options, and the importance of following all homecare instructions.?Steriod Injection:?I explained that a steroid and local anesthetic injections are administered to relieve pain and inflammation and thereby meant to improve function. I explained the possible complications including but not limited to signs/symptoms of steroid flare, infection, bruising, atrophy, discoloration of skin, change/deviation in toe position, and that additional injections may be necessary, cortisone post-injection informative educational handout was dispensed to and reviewed with the patient, Pt defers injection today.? ??Screening/Special Tests:?Fall Risk?Screening:?No falls in the past year ?FALLS: Screening for Future Fall Risk?Have you had any falls with injury in the past year??No * Follow Up:?2 Weeks,prn * Images: * Sign off status: Completed true * Provider:?Sudha Bowles DPM Date:?2024 Generated for Chinyere cox/Milton/Melba on:?08/15/2024 06:11 AM EDT History and Physical Notes * HPI (History of Present Illness) Category Sub-Category Detail Notes Category Not es Foot Pain Nature: aching, stiffness, swelling, throbbing Location: Top, Midfoot, LEFT Duration: , several months Course: worse Treatments: rest/alter normal da clifford activity Misc: Pt States Last PCP V isit -07/02/2024 Examination Category Sub-Category Detail Notes Category Not es Ingrown Nail INSPECTION: Reveals nail inc urvation, pain on palpation, groove hypertrophy, groove ischemia, Medial nail border, TA Neurological SENSORY: Neurological exa m reveals intact sensorium, pain sensation normal, vibration sensation intact, pinprick sensation is normal in the lower extremities, Pt denies, anesthesia, burning, paresthesia, tingling, B/L TINEL'S COMPRESSION: Negative, Medial do rsal cutaneous nerve distribution, Intermediate dorsal cutaneous nerve distribution, Deep peroneal nerve distribution, Left Dermatologic SKIN FINDINGS: Skin exam reveal s normal color, texture, elasticity, and turgor. There are no masses, nor excrescences. The interspaces are clear, B/L Orthopedic FOOT MORPHOLOGY: Prominent, pain ful 1st Met-Cuneiform joint with inflammation, LEFT FOOTWEAR EVALUATION: shoe gear propertie s exacerbate patients foot/toe deformity DIGITAL DEFORMITIES: Digital contracture , PIPJ, 2-5 B/L, incompl-reducible with WB, or to push-up test, no over, nor underlapping MUSCLE STRENGTH: 5/5 all groups in a symmetrical fashion, B/L General Examination GENERAL APPEARANCE: Reveals a pleasant, alert, well nourished, well-developed, well hydrated individual, who demonstrates proper attention to hygiene/body habitus, and is in no acute distress, Pt serves as own historian for office visit today ORIENTED: person, place, and t ck Vascular DP PULSES (B): 3/4, B/L PT PULSES (B): 3/4, B/L CAPILLARY FILL TIME: immediate, all digi ts, B/L TEMPERTURE GRADIENT (C): normal, warm to cool, proximal to distal, B/L, B/L TROPHIC CONDITION-TEXTURE/ELASTICITY/TURGOR/HAIR GROWTH (B): normal, B/L PIGMENTATION: normal, B/L X-Rays - IMAGING REPORT Findings: normal b one and soft tissue density consistent for patients age and sex, eburnation dorsal 1st MT/Cun. jt, dorsal degenerative changes of the tarsal joints Fracture: Negative fractures i dentified Digits: show asymmetrical katelyn int space narrowing at the PIPJ consistent with clinical finding of hammertoe deformity, show enlarged/hypertrophied phalangeal head(s) consistent for clinical finding of hammertoe deformity Views: 3 views of Foot, AP, LAT, LO, LEFT Taken by trained Podiatric Perishable Fruit Inspector ( KL ) Clinical Indication(s): Evaluate for Fra cture, Evaluate Biomechanical Deformity
--- OUTSIDE RECORDS SUMMARY | 2024-08-15 06:11 | XMS_ITS | Patient Health Record ---
Author [facility] Address [address] [address] Care Team Providers Care Fur Operator Name Role Phone Sanjeev Stephenson MD Primary Care Provider Josea Sudha Laguna Unavailable [phone] Allergies Allergen (clinical drug ingredient) Drug/Non Drug Allergy documented on EMR Reaction Allergy Type Onset Date Status ibuprofen Advil hives Drug Allergy Active Aleve hives Drug Allergy Active ibuprofen Ibuprofen hives Drug Allergy Active Results Component Value Reference Range Notes X ray : Foot, left 3V Reviewed date:07/10/2024 12:26:48 PM Interpretation:See Examination above Performing Lab: Notes/Report: See Examination above Reason For Referral No Information Medications Medication SIG (Take, Route, Frequency, Duration) Notes Start Date End Date Status Percocet 5-325 MG 1 tablet as needed Orally every 4-6 hrs for as needed 08/25/2016 Unknown Multivitamin Active Fish Oil Active Keflex 500 MG 1 capsule Orally huma ry 12 hrs for 10 day(s) Unknown Atorvastatin Calcium 10 MG Orally Active Keflex 500 MG 1 capsule Orally huma ry 12 hrs for 7 days 03/25/2020 Unknown Social History Tobacco Use: Social History Observation [...] Are you an other tobacco user? 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) Active confirmed Problem Nonstageable pressure ulcer of left foot (2267061449983800 5) 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 of skin (L97.421) Active confirmed Problem Acquired hammer toe of lesser toe of left foot (7114694385246667 3) Hammer toe of left foot (M20.42) Active confirmed Problem Osteoarthritis of midtarsal joint of left foot (2316920744178666 ) Osteoarthritis of midtarsal joint of left foot (M19.072) Active confirmed Vital Signs Blood pressure diastolic 73 mm Hg 07/10/2024 Height 5ft 9in in 07/10/2024 Blood pressure systolic 125 mm Hg 07/10/2024 Weight 204 lbs 07/10/2024 BMI 30.12 kg/m2 07/10/2024 Procedures Procedure Date Ordered Date Performed Result Body Sit e 14349-Iqticniy Plate 07/10/2024 N/A Encounters Encounter Location Date [facility] [address] [place] [address] 07/10/2024 Sudha Black Pain in left foot M79.672 ; Osteoarthritis of midtarsal joint of left foot M19.072 ; Pain in left ankle and joints of left foot M25.572 ; Bursitis of left foot M77.52 and Ingrown nail L60.0 [facility] [place] [address] [place] [address] 06/06/2024 Sudha Black Assessments Encounter Date Diagnosis (ICD Code) Assessment [...] Treatment Pending Test Test Name Order Date X ray : Foot, right 3V 07/11/2011 X ray : Foot, right 3V 09/16/2016 10209-Afpqhrqo Plate 03/04/2020 44009-Dljqwiru Plate 07/10/2024 50847- Debride <25 sq cm 04/21/2020, H5741-MBYXW/INJECT, JOINT/BURSA 0 07/11/2011 89050, C1594-KJHJI/INJECT, JOINT/BURSA 1 00, J6163-NEVFB/INJECT, JOINT/BURSA 0 06/22/201871251, E9280-QUVCG/INJECT, JOINT/BURSA 0 12/30/201591893, W1363-CZQUZ/INJECT, JOINT/BURSA 1 04/10/2015 44375, A2090-ZUXPE/INJECT, JOINT/BURSA 1 05/18/201518898, B5756-SBSVB/INJECT, JOINT/BURSA 0 05/12/201600355, F7106-GRMJW/INJECT, JOINT/BURSA 0 06/23/2016 33373-Qplwlkrse, Toes 10/19/2016 Insurance Providers Payer Name Payer Address Payer Phone Subscriber Number Group Number Insured Name Patient Relationship to Insured Coverage Start Date Coverage End Date Medicare National [employer] [address] [place] [address] [id number] Lee Fregoso Self - patient is the insured [employer] [address] [place] [address] [phone] [id number] Lee Fregoso Self - patient is the insured Medical (General) History Medical History History ICD Code measles mumps chicken pox Diverticulosis Surgical History Surgery Date(Month/Year) wrist surgery back surgery 03/12/2015 Excision Met Head R2nd 09/14/2016 Hydrocele 05/2017 Hospitalization History Reason Date(Month/Year) [facility]- Disc fusion 03/12/2015
--- OUTSIDE RECORDS SUMMARY | 2024-08-15 06:11 | XMS_ITS ---
Author Organization [facility] Address [address] [place] [address] Care Team Providers Care Business Process Manager Name Role Phone Sanjeev Stephenson MD Primary Care Provider Jordan Leiva Unavailable [phone] Allergies Allergen (clinical drug ingredient) Drug/Non Drug Allergy documented on EMR Reaction Allergy Type Onset Date Status vancomycin Vancomycin HCl Unknown Drug Allergy A ctive ibuprofen Ibuprofen Unknown Drug Allergy Active REASON FOR VISIT PATIENT PRESENTS TODAY FOR HX OF ADENOMATOUS POLYPS Medications Medication SIG (Take, Route, Frequency, Duration) Notes Start Date End Date Status Atorvastatin Calcium 10 MG TAKE 1 TABLET (10 MG TOTAL) BY MOUTH DAILY. Oral for 30 Active Fish Oil 1200 MG 1 capsule Orally Onc e a day for 30 day(s) Active Multi Vitamin/Minerals - as directed Ora lly ONCE A DAY Active Aspir-81 81 MG 1 tablet Orally Once a day for 30 day(s) Active Social History Tobacco Use: Social History Observation Description Date Details (start date - stop date) Former Smoker NA - NA Tobacco Use/Smoking Question Answer Notes Patient is a former smoker When did you stop smoking? over25 years ago How long has it been since you last smoked? > 10 years Alcohol Screen Question Answer Notes Did you have a drink contain ing alcohol in the past year? Yes How often did you have a dri nk containing alcohol in the past year? 2 to 4 times a month (2 points) How many drinks did you have on a typical day when you were drinking in the past year? 7 to 9 drinks (3 points) Points 5 Interpretation Positive Section Notes: Nonsmoker; no sig alcohol Problems Problem Type SNOMED Code ICD Code Onset Dates Problem Status W/U Status Risk Notes Problem Long-term current use of aspirin (766859391100 103) Aspirin long-term use (Z79.82) Active confirmed Vital Signs Blood pressure systolic 00 mm Hg 08/03/19 24 Blood pressure diastolic 00 mm Hg 024 Height 68 in 08/03/2023 Weight 209 lbs 08/03/2023 BMI 31.77 kg/m2 08/03/2023 Encounters Encounter Location Date Provider Diagnosis [facility] [address] [place] [address] 08/03/2023 Jordan Monterroso Preprocedural examination Z01.818 ; Aspirin long-term use Z79.82 and Encounter for screening for malignant neoplasm of colon Z12.11 Assessments Encounter Date Diagnosis (ICD Code) Assessment Notes Treatment Notes Treatment Clinical Notes Section Notes 08/03/2023 Preprocedural examination (ICD-10 - Z01.818) Overall, Jeff appears quite well. I did recommend a followup colonoscopy for further screening purposes given his history of a tubular adenoma removed over 5 years ago. He did review the rationale for that regard to colon cancer prevention. Full consent is obtained for this, including risks of bleeding and perforation. The procedure will be done monitored anesthesia care. He was given the below instructions regarding adjustment of his medications for the procedure.Jeff was comfortable with this plan. Thank you again for allowing me to participate in Jeff's c I shall continue to keep you advised of his progress.are. 08/03/2023 Aspirin long-term use (ICD-10 - Z79.82) Overall, Jeff appears quite well. I did recommend a followup colonoscopy for further screening purposes given his history of a tubular adenoma removed over 5 years ago. He did review the rationale for that regard to colon cancer prevention. Full consent is obtained for this, including risks of bleeding and perforation. The procedure will be done monitored anesthesia care. He was given the below instructions regarding adjustment of his medications for the procedure.Jeff was comfortable with this plan. Thank you again for allowing me to participate in Jeff's c I shall continue to keep you advised of his progress.are. 08/03/2023 Encounter for screening for malignant neoplasm of colon (ICD-10 - Z12.11) Stop aspirin and fish oil for 1 week before the colonoscopy Overall, Jeff appears quite well. I did recommend a followup colonoscopy for further screening purposes given his history of a tubular adenoma removed over 5 years ago. He did review the rationale for that regard to colon cancer prevention. Full consent is obtained for this, including risks of bleeding and perforation. The procedure will be done monitored anesthesia care. He was given the below instructions regarding adjustment of his medications for the procedure.Jeff was comfortable with this plan. Thank you again for allowing me to participate in Jeff's c I shall continue to keep you advised of his progress.are. Plan Of Treatment Treatment Notes Assessment Notes Encounter for screening for malignant neoplasm of colon Stop aspirin and fish oil for 1 week bef ore the colonoscopy Future Test Test Name Order Date COLONOSCOPY 08/03/2023 Next Appt Details Follow Up: prn, Reason: Progress Notes * MANUELITO NIETO ADOB: (67 yo M)Acc No.[id number]:08/03/2023 Progress Notes Patient:?MANUELITO NIETO A Provider:?Jordan Monterroso MD :1955???Age:67 Y???Sex:Male Eric e:08/03/2023 Address:[address] [place], [place] [id number] Pcp:Sanjeev Stephenson MD Subjective: * Chief Complaints: * ???PATIENT PRESENTS TODAY FO R HX OF ADENOMATOUS POLYPS * HPI: ???incontinence:? I saw Jeff in the office today in regard to his personal history of tubular adenomas of the colon and need for colorectal cancer screening. ?I last saw Jeff in June of 2018, at which time he underwent a screening colonoscopy with removal of a tubular adenoma. He presently feels very well. He enjoys a good appetite, without any significant heartburn or dysphagia. His bowel movements have been regular, without any hematochezia nor melena. He denies abdominal pain, jaundice, nor weight loss. He denies any known family history of colon cancer. * ROS:?General/Constitutional:?Change in appetite?denies.?Chills?denies.?Fatigue?denies.?Ophthalmologic:?Comments?all negative.?ENT:?Comments?all negative.?Respiratory:?hemoptysis?denies.?Cough?denies.?Cardiovascular:?Chest pain?denies.?Orthopnea?denies.?Gastrointestinal:?Comments?See HPI for details.?Genitourinary:?Hematuria?denies.?Dysuria?denies.?Musculoskeletal:?Painful joints?denies.?Weakness?denies.?Skin:?Itching?denies.?Rash?denies.?Neurologic:?Headache?denies.?Seizures?denies.?Psychiatric:?Comments?all negative.? * Medical History:? * Surgical History:?Hammer toe Hydrocele repair Inguinal hernia repair right side Tonsillectomy Back surgery--T7/T8--due to a MRSA infection in 2016 * Hospitalization/Major Diagno stic Procedure:?No Hospitalization History. * Family History:?Father: dece ased, diverticulitis.?Mother: , covid 2019.? No known hx of colon cancer. * Social History:?Tobacco Use:?Tobacco Use/Smoking?Patient is a?former smoker,?When did you stop smoking??over25 years ago,?How long has it been since you last smoked??> 10 years.?Drugs/Alcohol:?Alcohol Screen?Did you have a drink containing alcohol in the past year??Yes,?How often did you have a drink containing alcohol in the past year??2 to 4 times a month (2 points),?How many drinks did you have on a typical day when you were drinking in the past year??7 to 9 drinks (3 points),?Points?5,?Interpretation?Positive.?Miscellaneous:?Marital status: . Occupation: Retired [place] [employer]. ???Nonsmoker; no sig alcohol. * Medications:?TakingFish Oil 1200 MG Capsule 1 capsule Orally Once a dayAspir-81 81 MG Tablet Delayed Release 1 tablet Orally Once a dayMulti Vitamin/Minerals - Tablet as directed Orally ONCE A DAYAtorvastatin Calcium 10 MG Tablet TAKE 1 TABLET (10 MG TOTAL) BY MOUTH DAILY. Oral Medication List reviewed and reconciled with the patientTaking Fish Oil 1200 MG Capsule 1 capsule Orally Once a dayTaking Aspir- 81 81 MG Tablet Delayed Release 1 tablet Orally Once a dayTaking Multi Vitamin/Minerals - Tablet as directed Orally ONCE A DAYTaking Atorvastatin Calcium 10 MG Tablet TAKE 1 TABLET (10 MG TOTAL) BY MOUTH DAILY. Oral Medication List reviewed and reconciled with the patient * Allergies:?Vancomycin HClIbu jason[Allergies Verified] Objective: * Vitals:?Wt: 209 lbs, Ht: 68 in, BMI:31.77 Index, BP: 00/00 mm Hg. * Examination: ???General Examination: ?GENERAL APPEARANCE:?pleasant, well nourished, well developed, in no acute distress.?EYES:?sclera non-icteric.?ORAL CAVITY:?mucosa moist.?NECK/THYROID:?no cervical lymphadenopathy, neck supple.?SKIN:?nonjaundiced, no spider angiomata.?HEART:?S1, S2 normal.?LUNGS:?clear to auscultation bilaterally.?ABDOMEN:?normal bowel sounds, no guarding or rigidity, no guarding or rigidity, no masses palpable, soft, nontender, nondistended.?EXTREMITIES:?no edema.?NEUROLOGIC:?alert and oriented.? Assessment: * Assessment: 1.?Aspirin long-term use - Z 79.82 (Primary)?2.?Preprocedural examination - Z01.818?3.?Encounter for screening for malignant neoplasm of colon - Z12.11? Overall, Jeff appears quite w ell. I did recommend a followup colonoscopy for further screening purposes given his history of a tubular adenoma removed over 5 years ago. He did review the rationale for that regard to colon cancer prevention. Full consent is obtained for this, including risks of bleeding and perforation. The procedure will be done monitored anesthesia care. He was given the below instructions regarding adjustment of his medications for the procedure.Jeff was comfortable with this plan. Thank you again for allowing me to participate in Jeff's c I shall continue to keep you advised of his progress.are. Plan: * Treatment: Notes: Stop aspirin and fish oil for 1 week before the colonoscopy?? * Procedure Codes:?3017F COLOR ECTAL CA SCREEN DOC [id number] TOBACCO NON-OOPOE0991 BP SCR NOT PRFRM REC REASON NOS * Preventive Medicine:? ??Counseling:?Care goal follow-up plan:?Above Normal BMI Follow-up?Giving encouragement to exercise,?BMI management provided?Yes.? * Follow Up:?prn * * Sign off status: Completed true * Provider:?Jordan Monterroso MD Date:? 024 Generated for Chinyere cox/Milton/eTgabriellesmitting on:?08/15/2024 06:11 AM EDT History and Physical Notes * HPI (History of Present Illness) Category Sub-Category Detail Notes Category Not es incontinence I saw Jeff in the office today in regard to his personal history of tubular adenomas of the colon and need for colorectal cancer screening. I last saw Jeff in June of 2018, at which time he underwent a screening colonoscopy with removal of a tubular adenoma. He presently feels very well. He enjoys a good appetite, without any significant heartburn or dysphagia. His bowel movements have been regular, without any hematochezia nor melena. He denies abdominal pain, jaundice, nor weight loss. He denies any known family history of colon cancer. Examination Category Sub-Category Detail Notes Category Not es General Examination GENERAL APPEARANCE: pleasant , well nourished, well developed, in no acute distress HEAD: EYES: sclera non-icteric EARS: NOSE: THROAT: NECK/THYROID: no cervical lymphade nopathy, neck supple HEART: S1, S2 normal CHEST: LUNGS: clear to auscultatio n bilaterally ABDOMEN: normal bowel sounds, no guarding or rigidity, no guarding or rigidity, no masses palpable, soft, nontender, nondistended NEUROLOGIC: alert and oriented SKIN: nonjaundiced, no spi selma angiomata EXTREMITIES: no edema PERIPHERAL PULSES: BACK: BREASTS: MUSCULOSKELETAL: MALE GENITOURINARY: LYMPH NODES: RECTAL EXAM: FEMALE GENITOURINARY: ORAL CAVITY: mucosa moist
--- OUTSIDE RECORDS SUMMARY | 2024-08-15 06:11 | XMS_ITS ---
Author Organization [facility] Address [address] [place] [address] Care Team Providers Care Billiard Table Repairer Name Role Phone Sanjeev Stephenson MD Primary Care Provider Unavaila Sudha Laguna [phone] REASON FOR VISIT seeon sooner Encounters Encounter Location Date Provider Diagnosis [address] [address] 07/23/2024 Sudha Bowles Plan Of Treatment No Information Progress Notes * Lee FREGOSO ADOB: (68 yo M)Acc No.[id number]:07/23/2024 Progress Notes Patient:?EMILIA Lee Deepa Provider:?Sudha Bowles DPM :1955???Age:68 Y???Sex:Male Eric e:07/23/2024 Address:[address] [place], [place] [address] Pcp:Sanjeev Stephenson MD Subjective: * Chief Complaints: * ???1. Seeon sooner. * Medical History:? Objective: * Vitals:? Assessment: Plan: * Treatment: * Images: * The named appointment provid er may or may not be the originator of this progress note, and it is not deemed complete until electronically signed by the appointment provider. Sign off status: Pending * Provider:?Sudha Bowles DPM Date:?2024 Generated for Chinyere cox/Milton/eTgabriellesmitting on:?08/15/2024 06:11 AM EDT
--- OUTSIDE RECORDS SUMMARY | 2024-08-15 06:11 | XMS_ITS ---
Author Organization [facility] [place] Address [address] [place] [address] Care Team Providers Care Water Fabricator Operator Name Role Phone Sanjeev Stephenson MD Primary Care Provider Unavaila jose Black, Sudha Unavailable [phone] Allergies Allergen (clinical drug ingredient) Drug/Non Drug [...] for as needed 08/25/2016 Unknown Multivitamin Active Keflex 500 MG 1 capsule Orally huma ry 12 hrs for 10 day(s) Unknown Atorvastatin Calcium 10 MG Orally Active Keflex 500 MG 1 capsule Orally huma ry 12 hrs for 7 days 03/25/2020 Unknown Fish Oil Active [...] No Encounters Encounter [facility] [place] [address] 08/06/2024 Sudha Bowles Plan Of Treatment No Information Progress Notes * Lee FREGOSO ADOB: (68 yo M)Acc No.[id number]:08/06/2024 Progress Notes Patient:?Lee FREGOSO A Provider:?Sudha Bowles DPM :1955???Age:68 Y???Sex:Male Eric e:08/06/2024 Address:[address] [place] [address] [place] Pcp:Sanjeev Stephenson MD Subjective: * Chief Complaints: * ??? * ROS:?General/Constitutional:?Nausea?denies.?Vomiting?denies.?Hunger Thirst?denies.?Loss appetite?denies.?Chills?denies.?Fatigue?denies.?Fever?denies.?Night Sweats?denies.?Unexplained weight loss?denies.?Unexplained weight gain?denies.?HEENTM:?Dentures?denies.?Dizziness?denies.?Glasses/contacts?denies.?Retinopathy?de nies.?Blurred/double vision?denies.?TMJ?denies.?Discharge/drainage?denies.?Implants?denies.?Sore throat?denies.?Dental implants?denies.?Hard of hearing ?denies.?Difficulty chewing/swallowing/speaking?denies.?Nose bleeds?denies.?Sore mouth?denies.?Respiratory:?On Oxygen?denies.?Pneumonia/pleurisy?denies.?Bronchitis?denies.?Emphysema?denies.?C oughing?denies.?Cough blood?denies.?Shortness of breath?denies.?Wheezing?denies.?Cardiovascular:?Pacemaker?denies.?MVP?denies.?WPW?denies.?CHF?denies.?Heart attack?denies.?Septal defect?denies.?Rapid beat?denies.?Chest pain ?denies.?Atrial Fib.?denies.?Murmur/Palpitations?denies.?Gastrointestinal:?Hemorrhoids?denies.?Stomach/Abdominal pain?denies.?Dark blood stool?denies.?Irritable bowel ?denies.?Constipation?denies.?Diarrhea?denies.?Hematology:?Swelling?denies.?Clots?denies.?Varicose Veins?denies.?Bruising?denies.?Bleeding problem?denies.?Genitourinary:?Blood urine?denies.?Frequent/Painfu/urination/bladder control?denies.?Kidney stones?denies.?Infection (UTI)?denies.?Nephropathy?denies.?sex trans dis (STD)?denies.?Prostate?denies.?Musculoskeletal:?Hammertoes?denies.?Bunions?denies.?Back Pain?denies.?Muscle Cramps/ Resting?denies.?Muscle cramps / walking?denies.?Generalized aches and pains?denies.?Weakness?denies.?Integ.:?Herrmann?denies.?Scars?denies.?Corns/calluses?denies.?Ingrown nails?denies.?Painful nails?denies.?Open Sores?denies.?Rashes?denies.?Neurologic:?Difficulty sleeping?denies.?Brain disorder?denies.?Numbness?denies.?Balance trouble?denies.?Confusion?denies.?Fainting/blackouts?denies.?Tingling?denies.?Tr emors?denies.? * Medical History:?Measles, Mu mps, Chicken pox, Diverticulosis. * Surgical History:?wrist surg rey , back surgery 03/12/2015, Excision Met Head R2nd 09/14/2016, Hydrocele 05/2017. * Hospitalization/Major Diagno stic Procedure:?[facility]- Disc fusion 03/12/2015. * Family History:?Mother: dece ased.?Father: .? pt denies family history. * Social History:?Tobacco Use:?Tobacco Use/Smoking?Are you a:?former smoker ?Additional Findings: Tobacco Non-User?Current non-smoker ?Tobacco use other than smoking?Are you an other tobacco user??No ???Drugs/Alcohol:?Alcohol Screen?Did you have a drink containing alcohol in the past year??Yes ?How often did you have a drink containing alcohol in the past year??2 to 4 times a month (2 points) ?How many drinks did you have on a typical day when you were drinking in the past year??1 or 2 drinks (0 point) ?How often did you have 6 or more drinks on one occasion in the past year??Never (0 point) ?Points?2 ?Interpretation?Negative ???Miscellaneous:?Caffeine: yes, frequency:, 1-2 cups per day. ?Exercise: yes, walking, gym, bike riding. ?Marital status: . ?Occupation: retired. * Medications:?Taking Multivit harris , Taking Fish Oil , Taking Atorvastatin Calcium 10 MG Tablet Orally , Unknown Keflex 500 MG Capsule 1 capsule Orally every 12 hrs , Unknown Keflex 500 MG Capsule 1 capsule Orally every 12 hrs , Unknown Percocet 5-325 MG Tablet 1 tablet as needed Orally every 4-6 hrs * Allergies:?Ibuprofen: hives - Allergy, Advil: hives, Aleve: hives. Objective: * Vitals:? Assessment: Plan: * Treatment: * Images: * The named appointment provid er may or may not be the originator of this progress note, and it is not deemed complete until electronically signed by the appointment provider. Sign off status: Pending * Provider:Lexie Bowles DPM Date:?2024 Generated for Chinyere cox/Milton/Melba on:?08/15/2024 06:11 AM EDT
--- OUTSIDE RECORDS SUMMARY | 2024-08-15 06:12 | XMS_ITS ---
Author Organization [facility] Address [address] [place] [address] Care Team Providers Care Resident Surgeon Name Role Phone Sachin VASQUEZ, Sanjeev Primary Care Provider Jordan Leiva [phone] REASON FOR VISIT screening Encounters Encounter Location Date Provider Diagnosis [facility] [address] [place] [phone] 12/11/2023 Jordan Monterroso Plan Of Treatment No Information Progress Notes * MANUELITO NIETO ADOB: (68 yo M)Acc No.[id number]:12/11/2023 COLON WITH MAC Patient:?MANUELITO NIETO Provider:?Jordan Monterroso MD :1955???Age:68 Y???Sex:Male Eric e:12/11/2023 Address:[address] [place], [place] [id number] Pcp:Sanjeev Stephenson MD Subjective: * Chief Complaints: * ???1. Screening. * Medical History:? Objective: * Vitals:? Assessment: Plan: * Treatment: * * The named appointment provid er may or may not be the originator of this progress note, and it is not deemed complete until electronically signed by the appointment provider. Sign off status: Pending * Provider:?Jordan Monterroso MD Date:? 024 Generated for Chinyere cox/Milton/eTransmitting on:?08/15/2024 06:12 AM EDT
--- OUTSIDE RECORDS SUMMARY | 2024-08-15 06:12 | XMS_ITS | Patient Health Record ---
Author Organization [facility] Address [address] [place] [address] Care Team Providers Care Work Force Advisor Name Role Phone Sanjeev Stephenson MD Primary Care Provider Jordan Leiva [phone] Allergies Allergen (clinical drug ingredient) Drug/Non Drug Allergy documented on EMR Reaction Allergy Type Onset Date Status vancomycin Vancomycin HCl Unknown Drug Allergy A ctive ibuprofen Ibuprofen Unknown Drug Allergy Active Results Component Value Reference Range Notes Pathology (Not yet reviewed by provider) Interpretation: Performing Lab:[facility], [address] [place] [address] Notes/Report: Name: Manuelito Nieto Age/Sex: 68/M : 1955 Unit#: [id number] Attend Dr: Jordan Monterroso MD Re12/18/23 Status : [facility] Location: [facility] Disch: SPEC : [id number] RECD : 12/18/23 STATUS: LAURITA RODRIGUEZ NUM: [id number] ASPEN: 12/18/23-[address] [facility] [address]: Jordan Monterroso MD ENTERED: 12/18/23 SP TYPE: Surgical OTHR DR: Sanjeev Stephenson MD ORDERED: HE Stain/3, Gross Micro L4 Diagnosis Colon, cecal polyp: Tubular adenoma; negative for high-grade dysplasia and carcinoma. Clinical History Pre-Op Dx: Screening Post-Op Dx: Colon po lyp, diverticulosis, hemorrhoids Microscopic Description Microscopic sections reviewed. Material Received Cecal polyp Gross Description Received in formalin labeled ?cecal polyp? is a fragment of champagne-white soft tissue measuring 0.5 cm in greatest d imension which is entirely submitted for microscopic examination, 1 piece in cassette [facility] Copies To: Sanjeev Stephenson MD [address] [id number] Jordan Monterroso MD [facility] [address] [place] [address] [address] [place], [place] [id number] Signed (si gnature on file) Marichuy Champ 12/19/23 1136 END OF REPORT Reason For Referral No Information Medications Medication [...] Once a day for 30 day(s) Active Immunizations Vaccine Route Administration Date Status Comme nts Influenza Unknown 02/01/2018 Administered Social History Tobacco Use: Social History Observation [...] Positive Section Notes: Nonsmoker; no sig alcohol Nonsmoker; no sig alcohol Problems Problem Type SNOMED Code ICD Code Onset Dates Problem Status W/U Status Risk Notes Problem 204698354 Encounter for screening for malignant neoplasm of colon (Z12.11) Active confirmed Problem Diverticular disease of colon (661739438) Diverticulosis of large intestine without perforation or abscess without bleeding (K57.30) Active confirmed Problem 903446606542861 Preprocedural examination (Z01.818) Active confirmed Problem Long-term current use of aspirin (557635993855375) Aspirin long-term use (Z79.82) Active confirmed Encounters Encounter Location Date Provider Diagnosis [facility] Out[facility] [address] [place] [phone] 12/18/2023 Jordan Monterroso Colon cancer wallacee reyna Z12.11 ; Colon polyps K63.5 ; [...] hemorrhoids (ICD-10 - K64.8) Plan Of Treatment Pending Test Test Name Order Date Pathology 12/18/2023 Future Test Test Name Order Date COLONOSCOPY 04/27/2018 COLONOSCOPY 08/03/2023 Insurance Providers Payer Name Payer Address Payer Phone Subscriber Number Group Number Insured Name Patient Relationship to Insured Coverage Start Date Coverage End Date MEDICARE OF [place] [address] [place] [address] [id number] MANUELITO NIETO Self - patient is the insured MED[employer] ATTN CLAIMS [address] [place] [address] [phone] [id number] MANUELITO NIETO Self - patient is the insured Medical (General) History Medical History History ICD Code Denies RI,DM,CVA,Lung disease,renal dise ase Hyperlipidemia 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
--- OUTSIDE RECORDS SUMMARY | 2024-08-15 06:12 | XMS_ITS ---
Author Organization [facility] Address [address] [place] [address] Care Team Providers Care Timber Skidder Name Role Phone Sanjeev Stephenson MD Primary Care Provider Jordan Leiva [phone] REASON FOR VISIT screening Problems Problem Type SNOMED Code ICD Code Onset Dates Problem Status W/U Status Risk Notes Problem Diverticulosis o f large intestine without perforation or abscess without bleeding (K57.30) Active confirmed Encounters Encounter Location Date Provider Diagnosis [facility] [place] [facility] [address] [place], [place] [id number] 12/18/2023 Jordan Monterroso Colon cancer scree reyna [...] No Information Progress Notes * EMILIAMANUELITO ADOB: (68 yo M)Acc No.[id number]:12/18/2023 COLON WITH MAC Patient:?MANUELITO NIETO Deepa Provider:?Jordan Monterroso MD :1955???Age:68 Y???Sex:Male Eric e:12/18/2023 Address:[address] [place] [address], [place] [id number] Pcp:Sanjeev Stephenson MD Subjective: * Chief Complaints: * ???1. Screening. * Medical History:? Objective: * Vitals:? Assessment: * Assessment: 1.?Colon cancer screening - Z12.11 (Primary)???2.?Colon polyps - K63.5???3.?Diverticulosis of large intestine without perforation or abscess without bleeding - K57.30???4.?Other hemorrhoids - K64.8??? Plan: * Treatment: * Procedure Codes:?18031 COLON OSCOPY AND BIOPSY, Modifiers: PT , 0529F INTRVL [...]
[2024-08-15 06:23] LABS: MANUAL DIFF FLAG NO
[2024-08-15 07:17] LABS: Basophils Percent Auto 0.3 % (0-2); Eosinophils Absolute Auto 0.1 X10*3/uL (0.0-0.4); Eosinophils Percent Auto 2.8 % (0-4); Hematocrit 44.8 % (42.0-52.0); Hemoglobin 15.4 g/dl (14.0-18.0); Lymphocytes Absolute Auto 1.5 X10*3/uL (1.2-4.9); Lymphocytes Percent Auto 39.4 % (20-40); Mean Corpuscular HGB Conc 34.4 g/dl (31.0-36.0); Mean Corpuscular Hemoglobin 30.4 pg (27.0-33.0); Mean Corpuscular Volume 88.5 fL (80.0-98.0); Mean Platelet Volume 10.9 fL (9.4-12.4); Monocytes Absolute Auto 0.4 X10*3/uL (0.1-1.2); Monocytes Percent Auto 11.3 % (2-11); Neutrophils Absolute Auto 1.8 x10*3/uL (2.0-8.3); Neutrophils Percent Auto 46.2 % (45-73); Platelet Count 236 X10*3/uL (160-400); Red Blood Count 5.06 X10*6/uL (4.60-5.80); Red Cell Distribution Width 12.7 % (11.0-16.0); White Blood Count 3.9 X10*3/uL (4.8-10.8)
[2024-08-15 07:23] LABS: Appearance Urine Clear; Color Urine Yellow; Glucose Urine UA Negative (Negative); Leukocyte Esterase Urine Negative (Negative); Nitrite Urine Negative (Negative); PH 5.5 (5.0-9.0); Urine Blood Negative (Negative); Urine Ketones Negative (Negative); Urine Protein Negative (Neg-Trace)
[2024-08-15 07:35] LABS: Estimated Average Glucose 97 mg/dL; Hemoglobin A1C 127.9501 umol/L; Total Hemoglobin (HGBA1C) 4057.3548 umol/L
[2024-08-15 07:54] LABS: Alanine Aminotransferase 43 U/L (0-40); Albumin Level 4.2 g/dL (3.5-5.0); Alkaline Phosphatase 82 U/L (39-117); Anion Gap 11 (12-20); Aspartate Amino Transferase 46 U/L (5-37); Bilirubin Total 0.7 mg/dL (0.0-1.0); Blood Urea Nitrogen 19 mg/dL (9-16); Carbon Dioxide 24 mmol/L (22-29); Chloride 112 mmol/L (96-108); Cholesterol 144 mg/dL (<200); Estimated Glomerular Filt Rate > 60; Glucose Random 85 mg/dL (60-115); HDL Cholesterol 40 mg/dL (>40); LDL Cholesterol Calculated 84 mg/dL (<100); Potassium 4.4 mmol/L (3.3-5.1); Sodium 143 mmol/L (135-145); Total Protein 6.8 g/dL (6.5-8.0); Triglycerides 104 mg/dL (<150)
== END 2024-08-15 06:09 | disposition home or self-care (01) ==
LOC: HO.LAB 06:08
PROVIDERS: PCP Internal Medicine; Visit Provider Internal Medicine
DX: E04.2 Nontoxic multinodular goiter (principal); D12.6 Benign neoplasm of colon, unspecified; E78.00 Pure hypercholesterolemia, unspecified; R35.1 Nocturia; Z12.5 Encounter for screening for malignant neoplasm of prostate; Z13.1 Encounter for screening for diabetes mellitus
CPT/HCPCS: 36415; 80053; 80061; 81003; 83036; 84153; 84443; 85025

== ENCOUNTER 2024-09-05 10:46 | Outpatient (REF) | payer MEDICARE, SELFPAY ==
--- NOTE | ~2024-09-05 | US_ITS ---
EXAMINATION: US THYROID HISTORY: MULTIPLE THYROID NODULES TECHNIQUE: Real-time grayscale ultrasound imaging was performed and images were reviewed. COMPARISON: Comparison is made with the prior examination dated 08/15/2023. FINDINGS: SIZE: The right thyroid lobe measures 4.7 x 1.8 x 2.1 cm. The left thyroid lobe measures 4.4 x 2.4 x 1.9 cm. The isthmus measures 3 mm. FLOW: Flow to the gland is normal. ECHOGENICITY: The echotexture of the gland is homogeneous. NODULES: There are numerous lymph nodes in the neck bilaterally which are more notable for number than size. Seen are multiple bilateral thyroid nodules as described below. Nodule #: 1 Location: Right lower pole measuring 12 x 7 x 7 mm (previously 11 x 6 x 6 mm). Shape: Wider than tall (0 points) Margins: Smooth (0 points) Echotexture: Hypoechoic (2 points) Composition: Solid (2 points) Calcifications: None (0 points) Total points: 4 TIRADS: TR4: Moderately suspicious. Nodule #: 2 Location: Lower pole of the left thyroid lobe measuring 6 x 4 x 7 mm (previously 6 x 4 x 7 mm). Shape: Wider than tall (0 points) Margins: Smooth (0 points) Echotexture: Hypoechoic (2 points) Composition: Mostly solid (2 points) Calcifications: Punctate calcifications (3 points) Total points: 7 TIRADS: TR5: Highly suspicious. Nodule #: 3 Location: Lower pole of the left thyroid lobe measuring 3 x 3 x 3 mm (previously 3 x 3 x 3 mm). Shape: Wider than tall (0 points) Margins: Smooth (0 points) Echotexture: Isoechoic (1 point) Composition: Solid (2 points) Calcifications: None (0 points) Total points: 3 TIRADS: TR3: Mildly suspicious. US/US thyroid IMPRESSION: The nodule at the lower pole of the left thyroid lobe (nodule #2 above) now demonstrates suspicious features. According to ACR TI-RADS guidelines below, continued follow-up is recommended. ACR TI-RADS Guidelines TR1 (0 points): Benign, No follow-up or biopsy required TR2 (2 points): Not Suspicious, No biopsy or follow up indicated TR3 (3 points): Mildly Suspicious, FNA if >= 2.5 cm, Follow if >= 1.5 cm TR4 (4-6 points): Moderately Suspicious, FNA if >= 1.5 cm, Follow if >= 1.0 cm TR5 (>=7 points): Highly Suspicious, FNA if >= 1.0 cm, Follow if >= 0.5 cm Electronically signed by: Jordan Fields MD 09/05/2024 02:49 PM EDT
--- OUTSIDE RECORDS SUMMARY | 2024-09-05 12:40 | XMS_ITS ---
Author Organization [facility] Address [address] [place] [address] Care Team Providers Care Crane Crew Supervisor Name Role Phone Sanjeev Stephenson MD Primary Care Provider Jordan Leiva Unavailable [phone] Allergies Allergen (clinical drug ingredient) Drug/Non Drug [...] Notes Problem Long-term current use of aspirin ([id number]) Aspirin long-term use (Z79.82) Active confirmed Vital Signs Blood pressure systolic 00 mm Hg 08/03/19 24 Blood pressure diastolic 00 mm Hg 024 Height 68 in 08/03/2023 Weight 209 lbs 08/03/2023 BMI 31.77 kg/m2 08/03/2023 Encounters Encounter Location Date Provider Diagnosis [facility] [address] [place] [address] 08/03/2023 Jordan Monterroso Preprocedural examination Z01.818 ; [...] * MANUELITO NIETO ADOB: (67 yo M)Acc No.[id number]:08/03/2023 Progress Notes Patient:?MANUELITO NIETO A Provider:?Jordan Monterroso MD :1955???Age:67 Y???Sex:Male Eric e:08/03/2023 Address:[address] [place], [place] [id number] Pcp:Sanjeev Stephenson MD Subjective: * Chief Complaints: [...] drinks (3 points),?Points?5,?Interpretation?Positive.?Miscellaneous:?Marital status: . Occupation: Retired [employer] Helper. ???Nonsmoker; no sig alcohol. * Medications:?TakingFish Oil [...] Procedure Codes:?3017F COLOR ECTAL CA SCREEN DOC [id number] TOBACCO NON-PZOHM6127 BP SCR NOT PRFRM REC REASON NOS * Preventive Medicine:? ??Counseling:?Care goal follow-up plan:?Above Normal BMI Follow-up?Giving encouragement to exercise,?BMI management provided?Yes.? * Follow Up:?prn * * Sign off status: Completed true * Provider:?Jordan Monterroso MD Date:? 024 Generated for Chinyere cox/Milton/eTransmitting on:?09/05/2024 12:40 PM EDT History and Physical Notes * HPI [...]
== END 2024-09-05 10:47 | disposition home or self-care (01) ==
LOC: HO.US 10:46
PROVIDERS: PCP Internal Medicine; Visit Provider Internal Medicine
DX: E04.2 Nontoxic multinodular goiter (principal)
CPT/HCPCS: 76536

== ENCOUNTER → 2024-09-05 11:15 | Outpatient (BNV) | payer MEDICARE, SELFPAY | PROVIDERS: PCP Internal Medicine; Visit Provider Radiology Diagnostic Radiology | DX: E04.2 Nontoxic multinodular goiter (principal) | CPT/HCPCS: 76536 ==

== ENCOUNTER 2024-12-25 06:07 | Outpatient (REF) | payer MEDICARE, SELFPAY ==
--- OUTSIDE RECORDS SUMMARY | 2023-12-11 04:30 | XMS_ITS ---
Author Organization [facility] Address [address] [place] [address] Care Team Providers Care Energy Management Specialist Name Role Phone Sachin VASQUEZ, Sanjeev Primary Care Provider Jordan Leiva [phone] REASON FOR VISIT screening Encounters Encounter Location Date Provider Diagnosis [facility] Outpatient [address] [place], [place] [id number] 12/11/2023 Jordan Monterroso Plan Of Treatment No Information Progress Notes * MANUELITO NIETO ADOB: (69 yo M)Acc No.[id number]:12/11/2023 COLON WITH MAC Patient: MANUELITO LAUGHLIN Provider: Ashley Monterroso MD :1955 A ge:68 Y S ex:Male Date:12/11/2023 Address:[address] [place], [place] [id number] Pcp:Sanjeev Stephenson MD Subjective: * Chief Complaints: * 1 . Screening. * Medical History: Objective: * Vitals: Assessment: Plan: * Treatment: * * The named appointment provid er may or may not be the originator of this progress note, and it is not deemed complete until electronically signed by the appointment provider. Sign off status: Pending * Provider: Ashley Monterroso MD Date: 12/11/2023 Generated for Chinyere cox/Milton/eTransmitting on: 12/25/2024 06:10 AM EDT
--- OUTSIDE RECORDS SUMMARY | 2023-12-18 03:30 | XMS_ITS ---
Author Organization [facility] Address [address] [place] [address] Care Team Providers Care Quality Control Clerk Name Role Phone Sanjeev Stephenson MD Primary Care Provider Jordan Leiva [phone] REASON FOR VISIT screening Problems Problem Type SNOMED Code ICD Code Onset Dates Problem Status W/U Status Risk Notes Problem Diverticular disease of colon (527730423) Diverticulosis of large intestine without perforation or abscess without bleeding (K57.30) Active confirmed Encounters Encounter Location Date Provider Diagnosis [facility] [place] Outpatient [address], [place] [phone] 12/18/2023 Jordan Monterroso Colon cancer scree reyna Z12.11 ; Colon polyps K63.5 ; Diverticulosis of large intestine without perforation or abscess without bleeding K57.30 and Other hemorrhoids K64.8 Assessments Encounter Date Diagnosis (ICD Code) Assessment Notes Treatment Notes Treatment Clinical Notes Section Notes 12/18/2023 Colon cancer screening (ICD-10 - Z12.11) 12/18/2023 Colon polyps (ICD-10 - K63.5) 12/18/2023 Diverticulosis of large intestine without perforation or abscess without bleeding (ICD-10 - K57.30) 12/18/2023 Other hemorrhoids (ICD-10 - K64.8) Plan Of Treatment No Information Progress Notes * EMILIAMANUELITO ADOB: 6 (69 yo M)Acc No.[id number]:12/18/2023 COLON WITH MAC Patient: MANUELITO LAUGHLIN Deepa Provider: Ashley Monterroso MD :1955 A ge:68 Y S ex:Male Date:12/18/2023 Address:[address] [place] [address], [place] [id number] Pcp:Sanjeev Stephenson MD Subjective: * Chief Complaints: * 1 . Screening. * Medical History: Objective: * Vitals: Assessment: * Assessment: 1. C olon cancer screening - Z12.11 (Primary) 2 . C olon polyps - K63.5? 3. D iverticulosis of large intestine without perforation or abscess without bleeding - K57.30 4 . O ther hemorrhoids - K64.8 Plan: * Treatment: * Procedure Codes: 4 5380 COLONOSCOPY AND BIOPSY, Modifiers: PT , 0529F INTRVL 3+YRS PTS CLNSCP DOCD, 0528F RCMND FLW-UP 10 YRS DOCD, Modifiers: 1P * * The named appointment provid er may or may not be the originator of this progress note, and it is not deemed complete until electronically signed by the appointment provider. Sign off status: Pending * Provider: Ashley Monterroso MD Date: 0 12/18/2023 Generated for Chinyere cox/Milton/Robertoitting on: 0 12/25/2024 06:10 AM EDT
--- OUTSIDE RECORDS SUMMARY | 2024-07-23 05:30 | XMS_ITS ---
Author Organization [facility] Address [address] [place] [address] Care Team Providers Care Rag Cutting Machine Tender Name Role Phone Sanjeev Stephenson MD Primary Care Provider Unavaila Sudha Laguna [phone] REASON FOR VISIT seeon sooner Encounters Encounter Location Date Provider Diagnosis [address] [phone] 07/23/2024 Sudha Bowles Plan Of Treatment Next Appt Details Provider Name:Sudha Arenas Wilbur , 01/27/2025 08:15:00 AM, [address] [place] [address], [phone], Provider Name:Sudha A Wilbur , 02/10/2025 08:15:00 AM, [address] [place] [address], [phone], Progress Notes * Lee FREGOSO ADOB: (69 yo M)Acc No.[id number]:07/23/2024 Progress Notes Patient: Jenny Lee COX Provider: Prema Bowles DPM :1955 A ge:68 Y S ex:Male Date:07/23/2024 Address:[address] [place] [id number] Pcp:Sanjeev Stephenson MD Subjective: * Chief Complaints: * 1 . Seeon sooner. * Medical History: Objective: * Vitals: Assessment: Plan: * Treatment: * Images: * The named appointment provid er may or may not be the originator of this progress note, and it is not deemed complete until electronically signed by the appointment provider. Sign off status: Pending * Provider: Prema Bowles DPM Date: 0 07/23/2024 Generated for Chinyere cox/Milton/Melba on: 0 12/25/2024 06:10 AM EDT
--- OUTSIDE RECORDS SUMMARY | 2024-08-06 04:30 | XMS_ITS ---
Author Organization [facility] Address [address] [place] [address] Care Team Providers Care Box Cutter Name Role Phone Sanjeev Stephenson MD Primary Care Provider Unavaila jose Black, Sudha Unavailable [phone] Allergies Allergen (clinical drug ingredient) Drug/Non Drug Allergy documented on EMR Reaction Allergy Type Onset Date Status ibuprofen Advil hives Drug Allergy Active Aleve hives Drug Allergy Active ibuprofen Ibuprofen hives Drug Allergy Active Medications Medication SIG (Take, Route, Frequency, Duration) Notes Start Date End Date Status Percocet 5-325 MG 1 tablet as needed Orally every 4-6 hrs; Duration: as needed 08/25/2016 Unknown Multivitamin Active Keflex 500 MG 1 capsule Orally huma ry 12 hrs; Duration: 10 day(s) Unknown Atorvastatin Calcium 10 MG Orally Active Keflex 500 MG 1 capsule Orally huma ry 12 hrs; Duration: 7 days 03/25/2020 Unknown Fish Oil Active Social History Tobacco Use: Social History Observation Description Date Details (start date - stop date) Former Smoker NA - NA Tobacco Use/Smoking Question Answer Notes Are you a: former smoker Additional Findings: Tobacco Non-User Current no n-smoker Alcohol Screen Question Answer Notes Did you have a drink contain ing alcohol in the past year? Yes How often did you have a dri nk containing alcohol in the past year? 2 to 4 times a month (2 points) How many drinks did you have on a typical day when you were drinking in the past year? 1 or 2 drinks (0 point) How often did you have 6 or more drinks on one occasion in the past year? Never (0 point) Points 2 Interpretation Negative Tobacco use other than smoking: Question Answer Notes Are you an other tobacco user? No Encounters Encounter Location Date Provider Diagnosis [facility] [address] [place] [address] 08/06/2024 Sudha Bowles Plan Of Treatment Next Appt Details Provider Name:Sudha Bowles , 01/27/2025 08:15:00 AM, [address] [place] [address], [phone], Provider Name:Sudha Bowles , 02/10/2025 08:15:00 AM, [address] [place] [address], [id number], Progress Notes * Lee FREGOSO ADOB: (69 yo M)Acc No.[id number]:08/06/2024 Progress Notes Patient: Lee LAUGHLIN Provider: Prema Bowles DPM :1955 A ge:68 Y S ex:Male Date:08/06/2024 Address:[address] [place], [place] [id number] Pcp:Sanjeev Stephenson MD Subjective: * Chief Complaints: * * ROS: G eneral/Constitutional: Nausea d enies. V omiting d enies. H robert Thirst d enies. L oss appetite d enies. C hills d enies. F atigue d enies.?Fever d enies. N ight Sweats d enies. U nexplained weight loss d enies. U nexplained weight gain d enies. H EENTM: Dentures d enies. D izziness d enies. G lasses/contacts d enies. R etinopathy d enies. B lurred/double vision d enies. T MJ?denies. D ischarge/drainage d enies. I mplants d enies. S ore throat d enies. D ental implants d enies. H daphney of hearing d enies. D ifficulty chewing/swallowing/speaking d enies. N ose bleeds d enies. S ore mouth d enies. ? R espiratory: On Oxygen d enies. P neumonia/pleurisy d enies.?Bronchitis d enies. E mphysema d enies. C oughing d enies. C ough blood?denies. S hortness of breath d enies. W heezing d enies. C ardiovascular: Pacemaker d enies. M OIL PIT ATTENDANT d enies. W PW d enies. C HF d enies. H eart attack d enies. S eptal defect d enies. R apid beat d enies. C hest pain d enies. A trial Fib. d enies. M urmur/Palpitations d enies. G astrointestinal: Hemorrhoids d enies. S tomach/Abdominal pain d enies. D ark blood stool d enies. I rritable bowel d enies. C onstipation d enies. D iarrhea d enies. H ematology: Swelling d enies. C lots d enies. V aricose Veins d enies. B ruising d enies. B leeding problem d enies. G enitourinary: Blood urine d enies. F requent/Painfu/urination/bladder control d enies. K idney stones d enies. I nfection (UTI) d enies. N ephropathy d enies. s ex trans dis (STD) d enies. P rostate d enies. M usculoskeletal: Hammertoes d enies. B unions d enies. B ack Pain d enies. M uscle Cramps/ Resting d enies. M uscle cramps / walking d enies.?Generalized aches and pains d enies. W eakness d enies. I nteg.: Herrmann d enies. S cars d enies. C orns/calluses?denies. I ngrown nails d enies. P ainful nails d enies. O pen Sores d enies. R ashes d enies. N eurologic: Difficulty sleeping d enies. B rain disorder d enies. N umbness d enies. B alance trouble d enies. C onfusion d enies. F ainting/blackouts d enies. T ingling d enies. T remors d enies. * Medical History: M easles, Mumps, Chicken pox, Diverticulosis. * Surgical History: w rist surgery , back surgery 03/12/2015, Excision Met Head R2nd 09/14/2016, Hydrocele 05/2017. * Hospitalization/Major Diagno stic Procedure: [facility]- Disc fusion 03/12/2015. * Family History: M other: . F ather: . pt denies family history. * Social History: T obacco Use: T obacco Use/Smoking A re you a: f ormer smoker A dditional Findings: Tobacco Non-User C urrent non-smoker Tobacco use other than smoking A re you an other tobacco user? N o D rugs/Alcohol: A lcohol Screen D id you have a drink containing alcohol in the past year? Y es H ow often did you have a drink containing alcohol in the past year? 2 to 4 times a month (2 points) H ow many drinks did you have on a typical day when you were drinking in the past year? 1 or 2 drinks (0 point) H ow often did you have 6 or more drinks on one occasion in the past year? N ever (0 point) P oints 2 I nterpretation N egative M iscellaneous: C affeine: yes, frequency:, 1-2 cups per day. Exercise: yes, walking, gym, bike riding. Marital status: . Occupation: retired. * Medications: T aking Multivitamin , Taking Fish Oil , Taking Atorvastatin Calcium 10 MG Tablet Orally , Unknown Keflex 500 MG Capsule 1 capsule Orally every 12 hrs , Unknown Keflex 500 MG Capsule 1 capsule Orally every 12 hrs , Unknown Percocet 5-325 MG Tablet 1 tablet as needed Orally every 4-6 hrs * Allergies: I buprofen: hives - Allergy, Advil: hives, Aleve: hives. Objective: * Vitals: Assessment: Plan: * Treatment: * Images: * The named appointment provid er may or may not be the originator of this progress note, and it is not deemed complete until electronically signed by the appointment provider. Sign off status: Pending * Provider: Prema Bowles DPM Date: 0 08/06/2024 Generated for Chinyere cox/[place]/eTransmitting on: 0 12/25/2024 06:10 AM EDT
--- OUTSIDE RECORDS SUMMARY | 2024-12-25 06:10 | XMS_ITS | Patient Health Record ---
[facility] Address [address] [address] Care Team Providers Care Hand Blocker Name Role Phone Sanjeev Stephenson MD Primary Care Provider Unavailtrell Sudha Laguna Unavailable [phone] Allergies Allergen (clinical drug ingredient) Drug/Non Drug [...] 4-6 hrs; Duration: as needed 08/25/2016 Unknown Atorvastatin Calcium 10 MG Orally Active Keflex 500 MG 1 capsule Orally huma ry 12 hrs; Duration: 10 day(s) Unknown Multivitamin Active Fish Oil Active Immunizations Vaccine Route Administration Date Status Comme nts Influenza Unknown 01/17/2024 Administered Social History Tobacco Use: Social History Observation Description Date Details (start date - stop date) Never Smoker NA - NA Tobacco use other than smoking: Question Answer Notes Are you an other tobacco user? 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 ; Pain in left ankle and joints of left foot M25.572 ; Bursitis of left foot M77.52 and Ingrown nail L60.[address] [address] 10/25/2024 Sudha Black Ingrown nail L60.[address] [address] 06/06/2024 Sudha Black [address] [address] 10/21/2024 Sudha Black Assessments Encounter Date Diagnosis (ICD Code) Assessment Notes Treatment Notes Treatment Clinical Notes Section Notes 07/10/2024 Pain in left foot (ICD-10 - M79.672) 07/10/2024 Osteoarthritis of midtarsal joint of left foot (ICD-10 - M19.072) 10/25/2024 Ingrown nail (ICD-10 - L60.0) 07/10/2024 Pain in left ankle and joints of left foot (ICD-10 - M25.572) 07/10/2024 Bursitis of left foot (ICD-10 - M77.52) 07/10/2024 Ingrown nail (ICD-10 - L60.0) Plan Of Treatment Pending Test Test Name Order Date X ray : Foot, right 3V 07/11/2011 X ray : Foot, right 3V 09/16/2016 24453-Qnkufdhf Plate 03/04/2020 70602-Phbknakp Plate 07/10/2024 18336- Debride <25 sq cm 04/21/2020, H6349-FLAGN/INJECT, JOINT/BURSA 0 07/11/2011, K4679-XCBQC/INJECT, JOINT/BURSA 1 00, U4881-XAZVM/INJECT, JOINT/BURSA 0 06/22/2018, Q1308-PIRNJ/INJECT, JOINT/BURSA 0 12/30/2015, V1784-VYUYQ/INJECT, JOINT/BURSA 1 04/10/2015, B0210-UQNSK/INJECT, JOINT/BURSA 1 05/18/2015, F7247-FATIH/INJECT, JOINT/BURSA 0 05/12/2016, V1395-FTZVN/INJECT, JOINT/BURSA 0 06/23/2016 85846-Tfgatosuq, Toes 10/19/2016 Next Appt Details Provider Name:Sudha Bowles , 01/27/2025 08:15:00 AM, [address] [place] [address], [phone], Provider Name:Sudha Bowles , 02/10/2025 08:15:00 AM, [address] [place] [address], [phone], Insurance Providers Payer Name Payer Address Payer Phone Subscriber Number Group Number Insured Name Patient Relationship to Insured Coverage Start Date Coverage End Date Medicare National Govt Svcs Inc [address] [place] [address] [id number] Lee Fregoso Self - patient is the insured [employer] Blue [employer] [address] [place] [address] [id number] Lee Fregoso Self - patient is the insured Medical (General) History Medical History History ICD Code measles mumps chicken pox Diverticulosis Hammer toe of left foot M20.42 Osteoarthritis of midtarsal joint of lef t foot M19.072 Surgical History Surgery Date(Month/Year) wrist surgery back surgery 03/12/2015 Excision Met Head R2nd 09/14/2016 Hydrocele 05/2017 Hospitalization History Reason Date(Month/Year) [facility]- Disc fusion 03/12/2015
--- OUTSIDE RECORDS SUMMARY | 2024-12-25 06:10 | XMS_ITS | Clinical Summary ---
Author Organization [facility] Address [address] [place] [address] Phone Care Team Providers Care Photonic Laboratory Technician Name Role Phone Sanjeev Stephenson MD Primary Care Provider [phone] Jordan Monterroso MD Unavailable Sanjeev Stephenson MD Unavailable [phone] Allergies Active Allergy Reactions Criticality Noted Date Comments Ibuprofen Itching 07/14/2016 Naproxen Itching 07/14/2016 Vancomycin Hcl Unknown 07/14/2016 Medications multivitamin per tablet Take 1 tablet by mouth daily. Active omega-3 fatty acids-fish oil 340-1,000 mg Cap Take 1 capsule by mouth daily. Active aspirin 81 MG EC tablet Take 81 mg by mouth daily. Active chlorhexidine (PERIDEX) 0.12 % solution Swish and spit 15 mL as needed. Active vitamin E 400 UNIT capsule Take 400 Int'l Units by mouth daily. 08/18/2023 Active atorvastatin (LIPITOR) 10 MG tabletIndicatio ns:Hyperlipidem ia TAKE 1 TABLET BY MOUTH EVERY DAY 90 tablet 3 08/08/2024 Active Active Problems Problem Noted Date Diagnosed Date Multiple thyroid nodules 01/25/2022 Personal history of spine surgery 01/10/2019 Overview (01/10/2019): right side Hypercholesteremia Encounters Date Type Department Care Team Description 10/28/2024 Telephone [employer] [facility] [address] [place] [address] Farrah Long RN Results from Last 3 Months Immunizations Immunization Administration Dates Next Due COVID-19 (Pre-01/23) Moderna Vaccine, mRNA, PF 08/11/2020,07/14/2020 COVID-19 Moderna Spikevax Vaccine 12+ 01/18/2024 INFLUENZA, SPLIT VIRUS, TRIVALENT PF 02/17/2016, 03/24/2015 INFLUENZA, SPLIT VIRUS, TRIV ALENT W/ PRESERVATIVE IM 01/07/2014,01/16/2012,12/29/2010 Influenza High-Dose Quadriva lent Preservative Free IM 01/12/2023,01/25/2022,01/07/2021 Influenza High-Dose Trivalen t Preservative Free IM 01/18/2024 Influenza Quadrivalent Prese rvative Free IM 01/17/2020,01/10/2019,01/09/2018,02/13 Influenza trivalent preserva tive free intradermal 01/29/2013 Influenza, Unspecified Formulation 01/26/2010, Pneumococcal conjugate PCV20 07/28/2022 Pneumococcal polysaccharide PPSV23 12/29/2020 Td (adult) 5 Lf Tetanus Toxo id, PF, Adsorbed 12/09/2022,07/02/2001 Tdap 04/27/2012 Zoster live 07/14/2016 Zoster recombinant 01/29/2020,08/06/2019 Family History Relation Status Comments Brother (Age 60) etonic and maria l er disease Daughter 1 Alive Daughter 2 Alive Father (Age 86) aneurysm Mother (Age 95) Sister 1 Alive Sister 2 Alive Sister 3 Alive Sister 4 Alive Sister 5 Alive Son 1 Alive Son 2 Alive Social History Tobacco Use Types Packs/Day Years Used Date Smoking Tobacco: Former Cigarettes 1 27 1 969 - 1995 Passive Smoke Exposure: Never Smokeless Tobacco: Never Tobacco Cessation:Counseling Given: Not Answered Alcohol Use Standard Drinks/Week Comments Yes 6 (1 standard drink = 0.6 oz pur e alcohol) Child or Family Care Answer Date Record ed Do you have problems with on e of the following making it difficult for you to work, study, or receive health care? No 10/20/2020 Education Answer Date Recorded Are you interested in more education? Not on jeff e 10/25/2022 Are you concerned about learning? Not on file 10/25/2022 No 10/25/2022 No 10/25/2022 Food Answer Date Recorded Within the past 6 months we worried whether our food would run out before we got money to buy more. Never True 10/20/2020 Food didn't last Not on file 10/20/2020 Residential Stability Answer Date Recor ded What is your housing situation today? I have kera pablo 10/20/2020 How many times have you move d in the past 12 months? Zero (I did not move) 10/20/2020 06 Are you worried that in t he next 2 months, you may not have your own housing to live in? No 10/20/2020 Paying for Meds Answer Date Recorded Do you have trouble paying for medicines? No 10/20/2020 Paying Utility Bills Answer Date Record ed Do you have trouble paying your heating or elect ricity bill? No 10/20/2020 Transportation Answer Date Recorded Has the lack of transportati on kept you from medical appointments or from getting medications? No 10/20/2020 Unemployment Answer Date Recorded Are you currently unemployed or working on a part-time or temporary basis, and looking for work? No 10/20/2020 Digital Access Answer Date Recorded No 08/28/2022 No 08/28/2022 Reliable internet access at home? Not on file 08/28/2022 Device with a working camera? Not on file Intimate Partner Violence Answer Date R ecorded Denied Basic Needs Not on file 08/01/2024 In the past 12 months have y ou been in a relationship with a person who hurts, threatens, or tries to control you? No 08/01/2024 Worried food would run out Not on file 08/01 In the past 12 months have y ou been in a relationship with a person who hurts, threatens, or tries to control you? No 08/01/2024 Sex and Gender Information Value Date Recorded Sex Assigned at Male 07/28/2022 8:48 AM EDT Legal Sex Male 9:54 PM EDT Gender Identity Male 07/28/2022 8:48 AM EDT Sexual Orientation Straight 07/28/2022 8: 48 AM EDT Last Filed Vital Signs Vital Sign Reading Time Taken Comments Blood Pressure 117/82 08/01/2024 8:25 AM EDT Pulse 69 08/01/2024 8:25 AM EDT Temperature 35.7 C (96.3 F) 08/01/2024 8:25 AM EDT Respiratory Rate 18 08/01/2024 8:25 AM EDT Oxygen Saturation 94% 08/01/2024 8:25 AM EDT Inhaled Oxygen Concentration - - Weight 92.3 kg (203 lb 6.4 oz) 08/01/2024 8:25 A M EDT Height 172.6 cm (5' 7.95 ) 08/01/2024 8:25 AM ED T Body Mass Index 30.97 08/01/2024 8:25 AM EDT Plan of Treatment Upcoming Encounters Date Type Department Care Team (Late st Contact Info) Description 08/06/2025 8:00 AM EDT Office Visit [facility] [address] [place] [address] Sanjeev Stephenson MD [address] [place] [address] [email or web address] Health Maintenance Due Date Last Done Comments COLOGUARD 12/03/2000 FIT TEST 12/03/2000 FOBT 12/03/2000 SIGMOIDOSCOPY 12/03/2000 VIRTUAL COLONOSCOPY 12/03/2000 SCREENING FOR DIABETES 05/19/2024 2, 10/09/2020, 01/10/2018 INFLUENZA VACCINE (#1) 2024 4, 01/12/2023, 01/12/2023, Additional history exists COVID-19 VACCINE ( season) 2024 01/18/2024, 01/12/2023, 01/31/2022, Additional history exists DEPRESSION SCREENING 08/01/2025 08/01/2024 LIPID PANEL 03/09/2028 03/09/2023, 10/2022, 03/09/2023, Additional history exists COLONOSCOPY 12/17/2028 12/18/2023, 09/2018, 06/06/2018, Additional history exists COLORECTAL CANCER SCREENING 12/17/2028 RSV VACCINE (1 - 1-dose 75+ series) 12/03/2030 Adult Td,Tdap Booster 12/09/2032 12/09/2022 , 04/27/2012, 07/02/2001 ZOSTER VACCINES Completed 01/29/2020, 0508/2019, 07/14/2016 ABDOMINAL AORTIC ANEURYSM (AAA) SCREENING Completed 05/20/2021, 01/27/2021 HEPATITIS C SCREENING Completed 06/16/2021, 022 PNEUMOCOCCAL VACCINES (50+ years) Completed 07/28/2022, 12/29/2020 SMOKING STATUS SCREENING (Once After 26 Yrs) Completed 08/01/2024 HEPATITIS A VACCINES Aged Out No long er eligible based on patient's age to complete this topic HIB VACCINES Aged Out No longer eligi ble based on patient's age to complete this topic MENINGOCOCCAL VACCINES (ACWY) Aged Out No longer eligible based on patient's age to complete this topic MENINGOCOCCAL VACCINES (B) Aged Out N o longer eligible based on patient's age to complete this topic Medical Devices Not on file Procedures Procedure Name Priority Date/Time Associated Diagnosis Comments COLONOSCOPY FOR RESULT ENTRY ONLY Routine 12/18/2023 OUTSIDE HDL Routine 03/09/2023 HEPATITIS C ANTIBODY, QUALITATIVE Routine 06/16/2021 CT ABDOMEN/PELVIS WITH CONTRAST Urgent/patient waiting 05/20/2021 2:41 PM EST Lower abdominal pain OUTSIDE GLUCOSE FASTING Routine 10/09/2020 from Last 3 Months or Most Recently Relevant to Health Maintenance Results * COLONOSCOPY FOR RESULT ENTRY ONLY (12/18/2023) Colonoscopy 5 yr recall us Historical Provider HEALTH MAINTENANCE Final Result * Outside HDL (03/09/2023) HDL - External 49 40 - 80 mg/dL us Historical Provider LAB BLOOD ORDERABLES Karolyn l Result * Hepatitis C antibody, qualitative (06/16/2021) us Sanjeev Stephenson MD LAB BLOOD ORDERABLES Edited R esult - Final * CT ABDOMEN/PELVIS WITH CONTRAST (05/20/2021 2:41 PM EST) Anatomical Region Laterality Modality Abdomen, Pelvis Computed Tomogra phy 05/20/2021 4:54 PM EST Impressions 05/20/2021 5:13 PM EST 1.Findings consistent with acute diverticulitis involving the sigmoid colon. No evidence of abscess. 2.No other evidence of acute pathology in the abdomen or pelvis. 3.Numerous small cysts within the liver. Some lesions are too small to actively characterize but are very likely cysts, as well. Narrative 05/20/2021 5:[address] ABDOMEN/PELVIS WITH CONTRAST HISTORY: Lower abdominal pain. TECHNIQUE: Multidetector-row CT of the abdomen and pelvis was performed after administration of intravenous contrast using tailored dose modulation techniques. Images were reconstructed in the axial, coronal, and sagittal planes. COMPARISON: None. FINDINGS: Lower Chest: Mild increased markings at the bases, probably atelectasis. Liver: Multiple small cysts within the liver. The largest measuring 1.7 cm in maximal diameter multiple scattered sub-centimeter well-circumscribed hypodense masses within the liver too small to actively characterize but likely cysts as well. Liver is normal in size. Liver margins are smooth. Biliary: Gallbladder is contracted. No biliary ductal dilatation. Spleen: Normal. No splenomegaly or focal lesions. Pancreas: Normal. No masses or ductal dilatation. Adrenal Glands: Normal. No nodules. Kidneys/Ureters: 3 cm exophytic cyst in the pole of the left kidney medially. 1 cm exophytic cyst in the posterior aspect of the upper pole of the left kidney. No other significant renal abnormalities. Ureters normal in caliber. Bowel: Multiple diverticula in the sigmoid colon. Mild pericolic fat stranding associated with short segment of the sigmoid in the left side of the pelvis. Mild associated bowel wall thickening. No other evidence of bowel wall thickening. No marked bowel distention. The right lower quadrant. Peritoneum/Retroperitoneum: No free fluid, free air or evidence of organized fluid collections. Lymph Nodes: Suspicious lymph nodes. Pelvic Organs/Bladder: The bladder is normal in configuration. Mild prostatomegaly. Coarse calcifications in the prostate. Vessels: The portal vein is patent. The abdominal aorta is normal in caliber. Bones/Soft Tissues: Partial imaging of bilateral posterior fusion hardware in the lower thoracic spine. Ankylosis of the bodies of T7-T8. Anterior wedging of the body of T8. Procedure Note Marcus Alexandra MD - 05/20/2021 CT ABDOMEN/PELVIS WITH CONTRAST HISTORY: Lower abdominal pain. TECHNIQUE: Multidetector-row CT of the abdomen and pelvis was performedafter administration of intravenous contrast using tailored dosemodulation techniques. Images were reconstructed in the axial, coronal,and sagittal planes. COMPARISON: None. FINDINGS: Lower Chest: Mild increased markings at the bases, probably atelectasis. Liver: Multiple small cysts within the liver. The largest measuring 1.7 cmin maximal diameter multiple scattered sub-centimeter well-circumscribedhypodense masses within the liver too small to actively characterize butlikely cysts as well. Liver is normal in size. Liver margins are smooth. Biliary: Gallbladder is contracted. No biliary ductal dilatation. Spleen: Normal. No splenomegaly or focal lesions. Pancreas: Normal. No masses or ductal dilatation. Adrenal Glands: Normal. No nodules. Kidneys/Ureters: 3 cm exophytic cyst in the pole of the left kidneymedially. 1 cm exophytic cyst in the posterior aspect of the upper pole ofthe left kidney. No other significant renal abnormalities. Ureters normalin caliber. Bowel: Multiple diverticula in the sigmoid colon. Mild pericolic fatstranding associated with short segment of the sigmoid in the left side ofthe pelvis. Mild associated bowel wall thickening. No other evidence ofbowel wall thickening. No marked bowel distention. The right lowerquadrant. Peritoneum/Retroperitoneum: No free fluid, free air or evidence oforganized fluid collections. Lymph Nodes: Suspicious lymph nodes. Pelvic Organs/Bladder: The bladder is normal in configuration. Mildprostatomegaly. Coarse calcifications in the prostate. Vessels: The portal vein is patent. The abdominal aorta is normal incaliber. Bones/Soft Tissues: Partial imaging of bilateral posterior fusion hardwarein the lower thoracic spine. Ankylosis of the bodies of T7-T8. Anteriorwedging of the body of T8. IMPRESSION: 1.Findings consistent with acute diverticulitis involving the sigmoidcolon. No evidence of abscess. 2.No other evidence of acute pathology in the abdomen or pelvis. 3.Numerous small cysts within the liver. Some lesions are too small toactively characterize but are very likely cysts, as well. Sanjeev Stephenson MD IMG CT ABD/PELVIS Final Resul t * Outside Glucose,Fasting (10/09/2020) Glucose, fasting - External 95 65 - 99 mg/dL Historical Provider LAB BLOOD ORDERABLES Karolyn l Result from Last 3 Months or Most Recently Relevant to Health Maintenance Insurance [employer] MEDEX SUPPLEMENT MEDICARE PART A & B BLUE CROSS MEDEX SUPPLEMENT MEDICARE PART A & B [employer] CROSS MEDEX SUPPLEMENT MEDICARE PART A & B [employer] MED[employer] SUPPLEMENT MEDICARE PART A & B [employer] MEDEX SUPPLEMENT MEDICARE PART A & B [employer] MED[employer] SUPPLEMENT MEDICARE PART A & B [employer] MED[employer] SUPPLEMENT MEDICARE PART A & B MEDICARE PART A & B [employer] MED[employer] SUPPLEMENT MEDICARE PART A & B Care Teams Photonic Laboratory Technician Relationship Specialty Start Date End Date Sanjeev Stephenson MD [address] [place] [address] [email or web address] PCP - General Internal Medicine 02/09/17 Jordan Monterroso MD [address] [place] [address] Drive [address] [place] [address] Gastroenterology 10/20/20 Sanjeev Stephenson MD [address] [place] [address] [email or web address] Insurance Assigned Provider 07/08/23 Additional Source Comments The information contained in this document represents components of the legal health record. It is not the complete legal health record.[facility]
--- OUTSIDE RECORDS SUMMARY | 2024-12-25 06:11 | XMS_ITS | Encounter Summary ---
Author Organization [facility] Address [address] [place] [address] Phone Care Team Providers Care Electronic Systems Security Assessment Name Role Phone Sanjeev Stephenson MD Primary Care Provider Jordan Monterroso MD Unavailable [phone] Sanjeev Stephenson MD Unavailable [phone] Encounter Details Date Type Department Care Team (Late st Contact Info) Description 05/19/2021 Procedure Pass [facility], Ct Scan - [facility] [address] [place] [address] Social History Tobacco Use Types Packs/Day Years Used Date Smoking Tobacco: Former Cigarettes 1 27 04 971 - 1995 Smokeless Tobacco: Never Comments:quit 22 years ago Alcohol Use Standard Drinks/Week Comments Yes 6 (1 standard drink = 0.6 oz pur e alcohol) Child or Family Care Answer Date Record ed Do you have problems with on e of the following making it difficult for you to work, study, or receive health care? No 10/20/2020 Education Answer Date Recorded Are you interested in help w ith more adult education (for example, completing high school, GED, job training, learning the [place] language, technical skills, or developing parenting skills)? No 10/20/2020 Food Answer Date Recorded Within the past 6 months we worried whether our food would run out before we got money to buy more. Never True 10/20/2020 Food didn't last Not on file 10/20/2020 Residential Stability Answer Date Recor ded What is your housing situation today? I have kera sing 10/20/2020 How many times have you move [...] basis, and looking for work? No 10/20/2020 Sex and Gender Information Value Date Recorded Sex Assigned at Male 07/28/2022 8:48 AM EDT Legal Sex Male 9:54 PM EDT Gender Identity Male 07/28/2022 8:48 AM EDT Sexual Orientation Straight 07/28/2022 8: 48 AM EDT documented as of this encounter Plan of Treatment Upcoming Encounters Date Type Department Care Team (Late st Contact Info) Description 08/06/2025 8:00 AM EDT Office Visit [facility] Internal Medicine [address] [place] [address] Sanjeev Stephenson MD [address] [place] [address] [email or web address] documented as of this encounter Visit Diagnoses Not on filedocumented in this encounter Additional Health Concerns Infection Onset Date Last Indicated Resolved Time CoV-Risk 07/27/2021 07/27/2021 08/07/2021 1:24 AM EDT Assessment Noted Time PHQ-2 Depression Total Score: 0 10/21/19 21 10:44 AM EDT documented as of this encounter Care Teams Electronic Systems Security Assessment Relationship Specialty Start Date End Date Sanjeev Stephenson MD [address] [place] [address] PCP - General Internal Medicine 02/09/17 Jordan Monterroso MD [address] [place] [address] Drive [address] [place] [address] Gastroenterology 10/20/20 Sanjeev Stephenson MD [address] [place] [address] [email or web address] Insurance Assigned Provider 07/08/23 documented as of this encounter Additional Source Comments The information contained in this document represents components of the legal health record. It is not the complete legal health record.[facility]
--- OUTSIDE RECORDS SUMMARY | 2024-12-25 06:11 | XMS_ITS | Patient Health Record ---
Author Organization [facility] Address [address] [place] [address] Care Team Providers Care [place] [employer] Border Officer Name Role Phone Sanjeev Stephenson MD Primary Care Provider Jordan Leiva [phone] Allergies Allergen (clinical drug ingredient) Drug/Non Drug Allergy documented on EMR Reaction Allergy Type Onset Date Status vancomycin Vancomycin HCl Unknown Drug Allergy A ctive ibuprofen Ibuprofen Unknown Drug Allergy Active Reason For Referral No Information Medications Medication [...] Problem Status W/U Status Risk Notes Problem 072430416 Encounter for screening for malignant neoplasm of colon (Z12.11) Active confirmed Problem Diverticular disease of colon (215606179) Diverticulosis of large intestine without perforation or abscess without bleeding (K57.30) Active confirmed Problem 130810160759610 Preprocedural examination (Z01.818) Active confirmed Problem Long-term current use of aspirin (849281659059319) Aspirin long-term use (Z79.82) Active confirmed Plan Of Treatment Pending Test Test Name Order Date Pathology 12/18/2023 Future Test Test Name Order Date COLONOSCOPY 04/27/2018 COLONOSCOPY 08/03/2023 Insurance Providers Payer Name Payer Address Payer Phone Subscriber Number Group Number Insured Name Patient Relationship to Insured Coverage Start Date Coverage End Date MEDICARE OF [place] [address] [place] [address] [phone] [id number] MANUELITO NIETO Self - patient is the insured [employer] CLAIMS [address] [place] [phone] [id number] MANUELITO NIETO Self - patient is the insured Medical (General) History Medical History History ICD Code Denies SD,DM,CVA,Lung disease,renal dise ase Hyperlipidemia 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
[2024-12-25 06:30] LABS: MANUAL DIFF FLAG NO
[2024-12-25 07:45] LABS: Hematocrit 46.2 % (42.0-52.0); Hemoglobin 15.9 g/dl (14.0-18.0); Imm Gran Abs Auto 0.01 X10*3/uL (0.00-0.03); Imm Gran Pct Auto 0.2 % (0.0-0.4); Lymphocytes Absolute Auto 1.5 X10*3/uL (1.2-4.9); Mean Corpuscular HGB Conc 34.4 g/dl (31.0-36.0); Mean Corpuscular Hemoglobin 30.6 pg (27.0-33.0); Mean Corpuscular Volume 89.0 fL (80.0-98.0); NRBC Abs Auto 0.000 X10*3/uL (0.0-0.012); NRBC Pct Auto 0.0 /100WBC (0.0-0.2); Platelet Count 190 X10*3/uL (160-400); Red Blood Count 5.19 X10*6/uL (4.60-5.80); White Blood Count 4.6 X10*3/uL (4.8-10.8)
[2024-12-25 07:56] LABS: Hemoglobin A1C 130.4006 umol/L; Total Hemoglobin (HGBA1C) 4101.0801 umol/L
[2024-12-25 08:14] LABS: Appearance Urine Clear; Glucose Urine UA Negative (Negative); PH 6.5 (5.0-9.0); Specific Gravity - Urine 1.020 (1.005-1.025)
[2024-12-25 08:18] LABS: Alanine Aminotransferase 49 U/L (0-40); Albumin Level 4.4 g/dL (3.5-5.0); Alkaline Phosphatase 91 U/L (39-117); Anion Gap 11 (12-20); Aspartate Amino Transferase 35 U/L (5-37); Blood Urea Nitrogen 17 mg/dL (9-16); Calcium 9.2 mg/dL (8.4-10.2); Carbon Dioxide 27 mmol/L (22-29); Chloride 110 mmol/L (96-108); Cholesterol 166 mg/dL (<200); Estimated Glomerular Filt Rate > 60; HDL Cholesterol 36 mg/dL (>40); Potassium 4.3 mmol/L (3.3-5.1); Prostate Specific Antigen 0.41 ng/mL (<0.05-4.0); Sodium 144 mmol/L (135-145); Total Protein 7.0 g/dL (6.5-8.0); Triglycerides 229 mg/dL (<150)
== END 2024-12-25 06:08 | disposition home or self-care (01) ==
LOC: HO.LAB 06:07
PROVIDERS: PCP Internal Medicine; Visit Provider Internal Medicine
DX: Z12.5 Encounter for screening for malignant neoplasm of prostate (principal); D12.6 Benign neoplasm of colon, unspecified; E78.00 Pure hypercholesterolemia, unspecified; R35.1 Nocturia; E04.2 Nontoxic multinodular goiter; R73.01 Impaired fasting glucose
CPT/HCPCS: 36415; 80053; 80061; 81003; 83036; 84153; 84443; 85025